=== PATIENT | female | born 1950 | race Caucasian/White ===

== ENCOUNTER → 2016-05-05 | Outpatient (CLI) | payer OTHER ==
--- NOTE | 2016-05-05 14:14 | BD ---
EXAMINATION TYPE: MG DEXA axial skeleton. DATE OF EXAM: 05/05/2016 12:22 PM CLINICAL HISTORY: Z79.52, currently chronic use of steroids, postmenopausal female Height: 66.5 Weight: 206 FRAX RISK QUESTIONS: Alcohol (3 or more units per day): no Family History (Parent hip fracture): no Glucocorticoids (More than 3mos): yes (Ex: prednisone, prednisolone, methylprednisolone, dexamethasone, and hydrocortisone). History of Fracture in Adulthood: no Secondary Osteoporosis: 1. Type 1 Diabetes: no 2. Hyperthyroidism: no 3. Menopause before 45: no 4. Malnutrition: no 5. Chronic liver disease: no Rheumatoid Arthritis: no Current Tobacco Use: no RISK FACTORS HISTORY OF: History of Fracture: no Family History of Osteoporosis: no Smoke tobacco: not now Drink Alcohol: occasionally, socially Active: yes Diet low in dairy products/other sources of calcium: no Postmenopausal woman: yes Take estrogen and/or progesterone medications: yes How long: estrogen for a couple years' years ago; now about 1 year using Estradiol Lost more than 2 inches in height since high school: no Frequent falls: no Poor Health: no Hyperparathyroidism: no Adrenal Insufficiency: minimal MEDICATIONS: Prednisone or other steroids: yes How Long: at least 10 years Thyroid Medications: yes Which medication: Synthroid How Long: about 40 years Osteoporosis Medications: no Additional Medications: Albuterol rescue inhaler, [place], Singulair Additional History: hypothyroid EXAM MEASUREMENTS: Bone mineral densitometry was performed using the [employer] System. Bone mineral density as measured about the Lumbar spine is: ----- L1-L4(G/cm2): 1.244 T Score Values are as follows: ----- L2: -0.9 ----- L3: 0.8 ----- L4: 1.8 ----- L1-L4: 0.5 Bone mineral density not previously done at this facility; done elsewhere Bone mineral density about the R hip (g/cm2): 1.050 Bone mineral density about the L hip (g/cm2): 1.144 T Score values are as follows: -----R Neck: 0.1 -----L Neck: 0.8 -----R Intertrochanter: 0.1 -----L Intertrochanter: 1.1 Bone mineral density not previously done at this facility; done elsewhere IMPRESSION: Normal (Values between +1 and -1 indicate normal bone mass) Lumbar Spine & Bilateral Hips NOTE: T-SCORE=SD OF THE YOUNG ADULT MEAN.
== END ==
LOC: RADBDWWP 11:40
PROVIDERS: ATTEND Internal Medicine Endocrinology, Diabetes & Metabolism
DX: Z79.52 Long term (current) use of systemic steroids (principal)
CPT/HCPCS: 77080

== ENCOUNTER → 2016-05-05 | Outpatient (CLI) | payer OTHER | END | disposition home or self-care (01) | LOC: LABWHC1 11:21 | PROVIDERS: ATTEND Internal Medicine Endocrinology, Diabetes & Metabolism | DX: E03.8 Other specified hypothyroidism (principal) | CPT/HCPCS: 36415; 84443 ==

== ENCOUNTER → 2016-05-06 | Outpatient (CLI) | payer OTHER ==
[2016-05-06 17:27] LABS: Blood Urea Nitrogen 16 mg/dL (7-17); Non-African American GFR(MDRD) >60 (>60 ml/min/1.73 sqM)
== END | disposition home or self-care (01) ==
LOC: LABWHC1 16:37
PROVIDERS: ATTEND Physical Medicine & Rehabilitation
DX: M47.892 Other spondylosis, cervical region (principal); M47.896 Other spondylosis, lumbar region; M47.894 Other spondylosis, thoracic region; M54.2 Cervicalgia; M54.5 Low back pain; M54.6 Pain in thoracic spine
CPT/HCPCS: 36415; 82565; 84520

== ENCOUNTER → 2017-02-28 | Outpatient (CLI) | payer OTHER ==
--- NOTE | 2017-03-02 09:40 | MM ---
Reason for exam: screening (asymptomatic). Last mammogram was performed 1 year and 2 months ago. History: Patient is postmenopausal. Taking estrogen beginning at age 66. Physical Findings: A clinical breast exam by your physician is recommended on an annual basis and results should be correlated with mammographic findings. MG 3D Screening Mammo W/Cad Bilateral CC and MLO view(s) were taken. Prior study comparison: December 18, 2015, mammogram, performed at [facility]. December 05, 2014, mammogram, performed at [facility]. There are scattered fibroglandular densities. A couple asymmetric densities in the right breast appear more defined and incompletely disperse on 3D images. ASSESSMENT: Incomplete: need additional imaging evaluation, BI-RAD 0 RECOMMENDATION: Special view mammogram of the right breast. If lesion persists on supplemental views, image directed ultrasound is recommended. [facility] will attempt to contact patient to return for supplemental views and ultrasound if indicated.
== END | disposition home or self-care (01) ==
LOC: RADMAMWWP 13:41
PROVIDERS: ATTEND Family Medicine
DX: Z12.31 Encounter for screening mammogram for malignant neoplasm of breast (principal)
CPT/HCPCS: 77063; G0202

== ENCOUNTER → 2017-03-04 | Outpatient (CLI) | payer OTHER ==
--- NOTE | 2017-03-04 11:28 | MM ---
Reason for exam: additional evaluation requested from abnormal screening. Last mammogram was performed less than 1 month ago. History: Patient is postmenopausal. Taking estrogen beginning at age 66. Physical Findings: Nurse did not find any significant physical abnormalities on exam. MG 3D Work Up W/Cad RT LM, spot compression CC, and spot compression MLO view(s) were taken of the right breast. Prior study comparison: February 28, 2017, bilateral MG 3d screening mammo w/cad. December 18, 2015, mammogram, performed at [facility]. The breast tissue is heterogeneously dense. This may lower the sensitivity of mammography. There is no discrete abnormality on compression views. These results were verbally communicated with the patient and result sheet given to the patient on 03/04/17. ASSESSMENT: Probably benign, BI-RAD 3 RECOMMENDATION: Follow-up diagnostic mammogram of the right breast in 6 months.
== END | disposition home or self-care (01) ==
LOC: RADMAMWWP 10:23
PROVIDERS: ATTEND Family Medicine
DX: R92.8 Other abnormal and inconclusive findings on diagnostic imaging of breast (principal)
CPT/HCPCS: G0206; G0279

== ENCOUNTER → 2017-09-05 | Outpatient (CLI) | payer MEDICARE, OTHER ==
--- NOTE | 2017-09-06 08:38 | MM ---
Reason for exam: follow-up at short interval from prior study. Last mammogram was performed 6 months ago. History: Patient is postmenopausal. Taking estrogen beginning at age 66. Physical Findings: Nurse did not find any significant physical abnormalities on exam. MG 3D Diag Mammo W/Cad RT CC and MLO view(s) were taken of the right breast. Prior study comparison: March 04, 2017, right breast MG 3d work up w/cad RT. February 28, 2017, bilateral MG 3d screening mammo w/cad. There are scattered fibroglandular densities. No significant new findings when compared with previous films. These results were verbally communicated with the patient and result sheet given to the patient on 09/05/17. ASSESSMENT: Benign, BI-RAD 2 RECOMMENDATION: Return to routine screening mammogram schedule for both breasts. Back on schedule.
== END | disposition home or self-care (01) ==
LOC: RADMAMWWP 12:58
PROVIDERS: ATTEND Family Medicine
DX: R92.8 Other abnormal and inconclusive findings on diagnostic imaging of breast (principal)
CPT/HCPCS: 77061; 77065

== ENCOUNTER → 2018-01-09 | Outpatient (CLI) | payer OTHER, MEDICARE ==
--- NOTE | 2018-01-09 11:54 | US ---
EXAMINATION TYPE: US thyroid st tissue head/neck DATE OF EXAM: 01/09/2018 COMPARISON: 03/16/2016 CLINICAL HISTORY: 67-year-old female E04.1 Thyroid Nodule. TECHNIQUE: Multiple sonographic images of the thyroid gland are obtained. FINDINGS: GLAND SIZE: Right Lobe: 3.0 x 1.2 x 0.6 cm Overall Parenchyma: heterogenous Left Lobe: 2.5 x 0.6 x 0.7 cm Overall Parenchyma: heterogeneous Isthmus Thickness: 0.2 cm NODULES RIGHT: # of nodules measured on right: 0 LEFT: # of nodules measured on left: 0 ISTHMUS: # of nodules measured in the isthmus: 0 Previous nodule not appreciated on today's ultrasound. Bilateral neck scanned, no evidence of lymphadenopathy. IMPRESSION: Small heterogeneous thyroid gland. Query a history of chronic hypothyroidism in this patient. No disc rete nodule. Specifically, the previous nodule seen in the left lobe is no longer identified.
== END | disposition home or self-care (01) ==
LOC: RADUSWWP 08:10
PROVIDERS: ATTEND Internal Medicine Endocrinology, Diabetes & Metabolism
DX: E07.89 Other specified disorders of thyroid (principal); E03.8 Other specified hypothyroidism
CPT/HCPCS: 36415; 76536; 84443

== ENCOUNTER → 2018-03-15 | Outpatient (CLI) | payer OTHER, MEDICARE ==
--- NOTE | 2018-03-20 11:08 | MM ---
Reason for exam: screening (asymptomatic). Last mammogram was performed 6 months ago. History: Patient is postmenopausal. Taking estrogen beginning at age 66. Physical Findings: A clinical breast exam by your physician is recommended on an annual basis and results should be correlated with mammographic findings. MG Screening Mammo w CAD Bilateral CC and MLO view(s) were taken. Prior study comparison: September 05, 2017, right breast MG 3d diag mammo w/cad RT. March 04, 2017, right breast MG 3d work up w/cad RT. The breast tissue is heterogeneously dense. This may lower the sensitivity of mammography. No suspicious abnormality. No significant changes when compared with prior studies. ASSESSMENT: Negative, BI-RAD 1 RECOMMENDATION: Routine screening mammogram of both breasts in 1 year.
== END | disposition home or self-care (01) ==
LOC: RADMAMWWP 13:36
PROVIDERS: ATTEND Family Medicine
DX: Z12.31 Encounter for screening mammogram for malignant neoplasm of breast (principal)
CPT/HCPCS: 77067

== ENCOUNTER → 2018-05-03 | Outpatient (CLI) | payer MEDICARE, OTHER | END | disposition home or self-care (01) | LOC: LABWHC1 11:07 | PROVIDERS: ATTEND Nurse Practitioner Family | DX: E03.9 Hypothyroidism, unspecified (principal) | CPT/HCPCS: 36415; 84443 ==

== ENCOUNTER → 2018-05-03 | Outpatient (CLI) | payer MEDICARE, OTHER ==
[2018-05-03 11:28] LABS: HGB 14.3 gm/dL (11.4-16.0); MCH 30.8 pg (25.0-35.0); MCHC 33.3 g/dL (31.0-37.0); MCV 92.5 fL (80.0-100.0); Mean Platelet Volume 7.5; Platelet Count 280 k/uL (150-450); RBC 4.65 m/uL (3.80-5.40); RDW 13.4 % (11.5-15.5); WBC 8.2 k/uL (3.8-10.6)
[2018-05-03 11:41] LABS: Anion Gap 8 mmol/L; Blood Urea Nitrogen 20 mg/dL (7-17); Carbon Dioxide 30 mmol/L (22-30); Chloride 101 mmol/L (98-107); Potassium 4.6 mmol/L (3.5-5.1); Sodium 139 mmol/L (137-145)
== END | disposition home or self-care (01) ==
LOC: LABPAT 11:04
PROVIDERS: ATTEND Internal Medicine Interventional Cardiology
DX: Z01.812 Encounter for preprocedural laboratory examination (principal); I10 Essential (primary) hypertension; E78.1 Pure hyperglyceridemia; R07.9 Chest pain, unspecified
CPT/HCPCS: 80051; 82565; 84520; 85027

== ENCOUNTER 2018-05-25 08:03 | Day surgery (SDC) | payer MEDICARE, OTHER ==
[2018-05-23 14:38] VITALS: BMI 35.5
[~2018-05-25 08:03] MED LIST: ALPRAZolam 0.25 MG TAB PO PRN; ALPRAZolam 0.5 MG TAB PO PRN; ATORVASTATIN 80 MG TAB PO STA; NITROGLYCERIN SL TABS 0.4 MG TAB SUBLINGUAL PRN; SODIUM CHLORIDE 0.9% 1,000 ML in EMPTY BAG 1 BAG IV ONE
[2018-05-25] MEDS ORDERED: SODIUM CITRATE 500 ML IV SCH (08:30)
[2018-05-25] MEDS ORDERED: SODIUM CHLORIDE 0.9% 1,000 ML IV ONE (08:35)
[2018-05-25 08:39] VITALS: RESP 16; TEMP 98.2
[2018-05-25] MEDS ORDERED: SODIUM CITRATE 250 ML IV SCH (08:45)
[2018-05-25] MEDS ORDERED: MIDAZOLAM 2 MG/2 ML VIAL IVP ONE (09:00)
[2018-05-25] MEDS ORDERED: LIDOCAINE 1% INJ 10MG/ML (20 ML MDV) SQ ONE (09:02)
[2018-05-25] MEDS: VERAPAMIL SYRINGE (5 MG/10 ML) INTRAARTER ONE ×2 (09:03→09:13)
[2018-05-25] MEDS ORDERED: IOPAMIDOL-370 125ML BTL INJ ONE (09:13)
[2018-05-25] MEDS ORDERED: RX INFO: IV CONTRAST WAS GIVEN 1 EACH MISC MISCELLANE PRN (09:19)
[2018-05-25] MEDS ORDERED: SODIUM CHLORIDE 0.9% 1,000 ML IV SCH (09:30)
--- NOTE | 2018-05-25 09:44 | CC ---
CARDIAC CATHETERIZATION REPORT DATE OF SERVICE: May 25, 2018 PERFORMING PHYSICIAN: Mohamud Montgomery MD, engineering librarian. PROCEDURE PERFORMED: 1. Selective right and left coronary angiogram. 2. Left heart catheterization. INDICATION: This is a pleasant 67-year-old female patient with hypertension and dyslipidemia who continues to have chest discomfort in spite of normal myocardial perfusion imaging stress test. The exercise part of the test was abnormal showing ischemia, but the nuclear part came in to be unremarkable. She does have very significant family history of coronary artery disease. APPROACH: Right radial artery. COMPLICATION: None. LEVEL OF SEDATION: Moderate with sedation length of 14 minutes. PROCEDURE DESCRIPTION: After obtaining an informed consent, the patient was brought to cardiac boat laborer. The right radial artery was cannulated using micropuncture technique and a micropuncture wire passed easily then I placed a 6-Georgian sheath in the right radial artery. After that, I did give the patient 2 mg of verapamil IA and 10,000 units of heparin IV. Selective right and left coronary angiogram was performed using JR4 and JL3.5 catheters. The left heart catheterization was performed using 5-Georgian pigtail catheter. The procedure was completed without any complication. SELECTIVE CORONARY ANGIOGRAM: 1. The right coronary artery is a moderate caliber vessel and it is a dominant vessel. It is angiographically normal. 2. The left main is angiographically normal. It bifurcates into left circumflex and left anterior descending artery. 3. Left circumflex is a large caliber vessel. It is a nondominant vessel and appeared to be angiographically normal. The left circumflex in the midportion gives rise into a large OM branch which appeared to be angiographically normal. Distally gives PDA branch which appears to be angiographically normal as well. 4. The LAD: The proximal LAD is normal. The mid LAD is normal and gives rise into a large diagonal branch which seems to be angiographically normal and the LAD distally appeared to be angiographically normal. HEMODYNAMICS: The left ventricular end-diastolic pressure was 12 mmHg and no significant gradient was identified across the aortic valve. CONCLUSION: 1. Normal coronary angiogram. 2. Normal left ventricular end-diastolic pressure. POSTPROCEDURE MANAGEMENT: Medical treatment. MMODL / IJN: [id number] /
--- NOTE | 2018-05-25 09:47 | LTR ---
May 25, 2018 Re: Annalisa Nina Dear Dr. Abrams: Ms. Annalisa Wood underwent a heart catheterization and that showed normal coronaries. I want to thank you for allowing me to participate in her care and please do not hesitate to call if you have any question or concern. Sincerely, MD ESTELA James / MANJULA: [id number] /
[2018-05-25 14:16] VITALS: BP 133/71; PULSE 62
== END 2018-05-25 14:17 | disposition home or self-care (01) ==
LOC: CATHCVL 08:03
PROVIDERS: ATTEND Internal Medicine Interventional Cardiology
DX: R07.89 Other chest pain (principal); E78.5 Hyperlipidemia, unspecified; I10 Essential (primary) hypertension; E78.1 Pure hyperglyceridemia; Z82.49 Family history of ischemic heart disease and other diseases of the circulatory system; Z79.899 Other long term (current) drug therapy; Z88.6 Allergy status to analgesic agent; Z88.2 Allergy status to sulfonamides; Z88.8 Allergy status to other drugs, medicaments and biological substances; Z91.040 Latex allergy status; Z79.890 Hormone replacement therapy
CPT/HCPCS: 93458; C1894; J2250; J2001; Q9967

== ENCOUNTER → 2018-06-05 | Outpatient (CLI) | payer MEDICARE, OTHER | END | disposition home or self-care (01) | LOC: LABWHC1 10:40 | PROVIDERS: ATTEND Internal Medicine Endocrinology, Diabetes & Metabolism | DX: E04.1 Nontoxic single thyroid nodule (principal) | CPT/HCPCS: 36415; 84439; 84443 ==

== ENCOUNTER → 2019-02-14 | Outpatient (CLI) | payer MEDICARE ==
--- NOTE | 2019-02-14 14:05 | MR ---
EXAMINATION TYPE: MR cervical spine wo/w con DATE OF EXAM: 02/14/2019 COMPARISON: None HISTORY: Cervicalgia, pain and numbness TECHNIQUE: Multiplanar, multisequence images of the cervical spine were acquired utilizing 10 mL intravenous Johnny avist gadolinium contrast. Diffusion weighted imaging was performed. C2-C3: No evidence for degenerative disc disease. No disc bulge/herniation or protrusion. No Canal stenosis. Foramina are patent bilaterally. C3-C4: Posterior extension of endplate disc complex causes mild anterior mass effect on the thecal sa c. On mild central stenosis. Uncovertebral joint hypertrophy and facet arthropathy results in bilater al foraminal encroachment left greater than right. C4-C5: Uncovertebral joint hypertrophy and facet arthropathy results in bilateral significant foramin al encroachment, posterior extension endplate disc complex causes anterior mass effect on the thecal sac and mild to moderate central stenosis. C5-C6: Postop changes are noted. No significant spinal stenosis. There is some foraminal encroachment left greater than right. C6-C7: Postop changes are noted. There is some foraminal encroachment bilaterally. No significant ed tral stenosis. No disc herniation. C7-T1: No evidence for degenerative disc disease. No disc bulge/herniation or protrusion. No Canal stenosis. Foramina are patent bilaterally. Cervical segments are intact. There is normal alignment. Cervical spinal cord is remarkable for angel e mild foci of increased T2 signal within the cord at C5 and C6 likely due to some local myelomalacia . No abnormal enhancement. Some mild enhancement of the posterior aspect of the disc at L5 likely due to some local granulation tissue. Craniovertebral junction relationships are within normal limits. Cervical vertebral bodies show preserved height. Anterior cervical fusion and discectomy change at C5 -C7 is present with artifact due to patient's hardware. IMPRESSION: Degenerative disc disease, foraminal encroachment, postop change in cervical cord signal changes as d escribed. Spinal stenosis greatest at C4-5.
== END | disposition home or self-care (01) ==
LOC: RADMRIMAIN 08:43
PROVIDERS: ATTEND Physical Medicine & Rehabilitation
DX: M48.02 Spinal stenosis, cervical region (principal); M50.10 Cervical disc disorder with radiculopathy, unspecified cervical region; Z98.1 Arthrodesis status; M17.12 Unilateral primary osteoarthritis, left knee
CPT/HCPCS: 72156; A9585

== ENCOUNTER → 2019-03-16 | Outpatient (CLI) | payer MEDICARE ==
--- NOTE | 2019-03-20 08:34 | MM ---
Reason for exam: screening (asymptomatic). Last mammogram was performed 1 year ago. History: Patient is postmenopausal. Taking estrogen beginning at age 66. Physical Findings: A clinical breast exam by your physician is recommended on an annual basis and results should be correlated with mammographic findings. MG 3D Screening Mammo W/Cad Bilateral CC and MLO view(s) were taken. Prior study comparison: March 15, 2018, bilateral MG screening mammo w CAD. September 05, 2017, right breast MG 3d diag mammo w/cad RT. There are scattered fibroglandular densities. No significant changes when compared with prior studies. ASSESSMENT: Benign, BI-RAD 2 RECOMMENDATION: Routine screening mammogram of both breasts in 1 year.
== END | disposition home or self-care (01) ==
LOC: RADMAMWWP 11:20
PROVIDERS: ATTEND Family Medicine
DX: Z12.31 Encounter for screening mammogram for malignant neoplasm of breast (principal)
CPT/HCPCS: 77063; 77067

== ENCOUNTER → 2019-03-26 | Outpatient (CLI) | payer MEDICARE ==
[2019-03-26 16:53] LABS: T4, Free (Free Thyroxine) 1.4 ng/dL (0.80-1.80)
== END ==
LOC: LABWHC1 10:20
PROVIDERS: ATTEND Internal Medicine Endocrinology, Diabetes & Metabolism
DX: E04.1 Nontoxic single thyroid nodule (principal); E03.8 Other specified hypothyroidism
CPT/HCPCS: 36415; 84439; 84443

== ENCOUNTER → 2019-10-29 | Outpatient (CLI) | payer MEDICARE, OTHER ==
--- NOTE | 2019-10-29 13:31 | US ---
EXAMINATION TYPE: US thyroid st tissue head/neck DATE OF EXAM: 10/29/2019 COMPARISON: NONE CLINICAL HISTORY: E03.8 Other specified hypothyroidism. GLAND SIZE: Right Lobe: cm Overall Parenchyma: Left Lobe: cm Overall Parenchyma: Isthmus Thickness: cm NODULES RIGHT: # of nodules measured on right: 1. X x cm nodule at the pole with margins; . This nodule is and shows . Prior size: x x cm 2. X x cm nodule at the pole with margins; . This nodule is and shows . Prior size: x x cm 3. X x cm nodule at the pole with margins; . This nodule is and shows . Prior size: x x cm 4. X x cm nodule at the pole with margins; . This nodule is and shows . Prior size: x x cm LEFT: # of nodules measured on left: 1. X x cm nodule at the pole with margins; . This nodule is and shows . Prior size: x x cm 2. X x cm nodule at the pole with margins; . This nodule is and shows . Prior size: x x cm 3. X x cm nodule at the pole with margins; . This nodule is and shows . Prior size: x x cm 4. X x cm nodule at the pole with margins; . This nodule is and shows . Prior size: x x cm ISTHMUS: # of nodules measured in the isthmus: 1. X x cm nodule at the pole with margins; . This nodule is and shows . Prior size: x x cm Bilateral neck scanned, no evidence of lymphadenopathy. IMPRESSION: EXAMINATION TYPE: US thyroid st tissue head/neck DATE OF EXAM: 10/29/2019 COMPARISON: NONE CLINICAL HISTORY: E03.8 Other specified hypothyroidism. MEASUREMENTS: GLAND SIZE: Right Lobe: 3.8 x 0.9 x 0.4cm Left Lobe: 3.7 x 0.6 x 0.9cm Isthmus Thickness: 0.1cm NODULES RIGHT: # of nodules measured on right: 0 LEFT: # of nodules measured on left: 0 ISTHMUS: # of nodules measured within isthmus: 0 Bilateral neck scanned, no evidence of lymphadenopathy. IMPRESSION: No distinct abnormality appreciated.
[2019-10-29 14:54] LABS: T4, Free (Free Thyroxine) 1.2 ng/dL (0.78-2.19)
== END | disposition home or self-care (01) ==
LOC: RADUSMAIN 12:59
PROVIDERS: ATTEND Internal Medicine Endocrinology, Diabetes & Metabolism
DX: E03.8 Other specified hypothyroidism (principal); E04.1 Nontoxic single thyroid nodule
CPT/HCPCS: 36415; 76536; 84439; 84443

== ENCOUNTER → 2019-12-06 | Outpatient (CLI) | payer MEDICARE, OTHER ==
--- NOTE | 2019-12-06 15:07 | CONS ---
CONSULTATION DATE OF SERVICE: 12/06/2019 A 69-year-old lady who has been evaluated in the Sleep Center for obstructive sleep apnea-hypopnea syndrome. HISTORY OF PRESENT ILLNESS SLEEP WAKE EVALUATION: The patient has some obstructive sleep apnea diagnosed several years ago on treatment with CPAP. Last time was seen no neuritis last time was seen so after awakenings in the morning she has episodes of sleep paralysis. Also in the morning she has to. She wakes up tired, has problems with memory, concentration, depression, anxiety, claustrophobia. His sleep schedule from 10 p.m. to 6:30 a.m. No problems with falling asleep. No TV in bedroom. She may take additional nap around 2 pm. She wakes up from sleep 2 times with nocturia. No history of hypnagogic hallucinations. [place] Sleepiness Scale is 6. I checked patient's CPAP unit and CPAP pressure of 9 cm of water. PAST MEDICAL HISTORY: Positive for hypertension, hyperlipidemia, asthma, hypothyroidism. PAST SURGICAL HISTORY: Partial hysterectomy, total knee replacement, cervical fusion. MEDICATIONS: Synthroid, doxycycline, duloxetine, Hyzaar, Singulair, lovastatin, Serevent, albuterol. SOCIAL HISTORY: Quit smoking about 35 years ago. Alcohol consumption occasional. FAMILY HISTORY: Hypertension, heart problems, asthma, snoring, diabetes, thyroid problems, mental illness. REVIEW OF SYSTEMS: Awakenings from sleep with nocturia and episodes of sleep or paralysis. PHYSICAL EXAM: lady without distress, BP 118/67, HR 76, RR 16, height 5, 6-3/4, weight 222.2, temperature 98.4, oxygen saturation at room air 98%. OROPHARYNX: Extremely low position of soft palate. Mallampati 4. ABDOMEN: Slightly obese. NECK: Supple, no JVD. Thyroid is not palpable. LUNGS: Clear to percussion and to auscultation. Good air exchange. No wheezing or rhonchi. HEART: S1, S2 regular. No murmurs, gallops, or rubs. EXTREMITIES: No clubbing or cyanosis. PRECISION FARMING SPECIALIST: Awake, alert, and oriented X3. Cranial nerves 2 to 7 intact. There is no fasciculation or atrophy. noted. No focal deficits observed. IMPRESSION: 1. Repeat CPAP titration for evaluation of effective CPAP pressure at the present time. Possibly, patient still have some abnormalities of respiration in REM sleep and because she wakes up with episodes of sleep paralysis. 2. Losing weight. 3. Sleep hygiene with regular time in bed for 7-1/2 to 8 hours. 4. No driving if feeling sleepiness. 5. [employer] required the patient to repeat the sleep study. Thank you very much for allowing me to participate in the management of your patient. Sincerely, Elijah Dixon MD, PhD, FAASM Diplomat of [place] [employer] [place] Kier Hand of [facility] [place] MMODL / MATTHEWN: [id number] /
== END | disposition home or self-care (01) ==
LOC: SLEEP 13:39
PROVIDERS: ATTEND Internal Medicine
DX: G47.33 Obstructive sleep apnea (adult) (pediatric) (principal); Z99.89 Dependence on other enabling machines and devices; R63.4 Abnormal weight loss
CPT/HCPCS: 99211

== ENCOUNTER → 2020-01-02 | Outpatient (CLI) | payer MEDICARE, OTHER | END | disposition home or self-care (01) | LOC: LABWHC1 10:21 | PROVIDERS: ATTEND Internal Medicine Endocrinology, Diabetes & Metabolism | DX: E03.8 Other specified hypothyroidism (principal) | CPT/HCPCS: 36415; 84443 ==

== ENCOUNTER → 2020-02-14 | Outpatient (CLI) | payer MEDICARE, OTHER ==
--- NOTE | 2020-02-14 17:47 | SFUN ---
SLEEP CENTER FOLLOW UP NOTE DATE OF SERVICE: 02/14/2020 This 69-year-old lady has been followed in the sleep center for treatment of obstructive sleep apnea-hypopnea syndrome. Recently we did a home sleep apnea test which showed an apnea-hypopnea index of 28 with oxygen desaturation to 81%. Then the patient had CPAP titration. I discussed results of her sleep study with the patient in detail. After that she received a new CPAP unit. The patient is able to use CPAP equipment every night for the whole night. She likes her machine, but it is noisy during sleep. [place] Sleepiness Scale today is 6, which is normal. I checked her CPAP unit. CPAP pressure is 9 cm of water. Usage is 29/30 nights for more than 4 hours. Average usage is 7.4 hours per night. Leak is 1 L/minute. Apnea- hypopnea index is 4.8. Her medications are Synthroid 112 mcg once a day in the morning, duloxetine 60 mg once a day, lovastatin 20 mg once a day, Serevent inhaler b.i.d., prednisone 20 mg for 5 days for bursitis, doxycycline 50 mg b.i.d. PHYSICAL EXAMINATION: GENERAL: A pleasant patient in no distress. VITAL SIGNS: BP 142/62, HR 70, RR 15, height 5 feet 6-1/2 inches, weight 222, BMI 34.8, temperature 98.8, oxygen saturation at room air 97%. HEENT: PERRLA, EOMI. Evaluation of oropharynx showed tongue protrudes midline. Low position of soft palate. NECK: Supple. No JVD. Thyroid is not palpable. LUNGS: Clear to percussion and to auscultation. Good air exchange. No wheezing or rhonchi. HEART: S1, S2 regular. No murmurs, gallops or rubs. ABDOMEN: Soft, nontender. No organomegaly. Bowel sounds are heard in all four quadrants. EXTREMITIES: No clubbing or cyanosis. BUSINESS SYSTEMS ADVISOR: Awake, alert, and oriented X3. Cranial nerves 2 to 7 intact. There is no fasciculation or atrophy. noted. No focal deficits observed. IMPRESSION: 1. Obstructive sleep apnea-hypopnea syndrome. The patient demonstrated great compliance with treatment, benefitting from treatment. The machine is noisy, according to patient. 2. Hypertension. 3. Hyperlipidemia. 4. Asthma. 5. Hypothyroidism. PLAN: 1. Patient will continue to use PAP equipment every night for the whole night. 2. Sleep hygiene with regular time in bed for at least 7-1/2 to 8 hours. 3. Precautions related to driving. No driving if feeling sleepiness. 4. I will maintain all necessary prescription for PAP supplies including mask, tube, filters. 5. Watching weight. 6. No driving if feeling sleepiness. 7. Follow-up visit in 6 months or earlier if patient has any problems. 8. Prescription to check and replace machine if necessary for the noise. Thank you very much for allowing me to participate in the management of your patient. Sincerely, Elijah Dixon MD, PhD, FAASM Diplomat of [employer] Global Safety Officer of [facility] [place] MMODL / MATTHEWN: [id number] /
== END | disposition home or self-care (01) ==
LOC: SLEEP 13:22
PROVIDERS: ATTEND Internal Medicine
DX: G47.33 Obstructive sleep apnea (adult) (pediatric) (principal); I10 Essential (primary) hypertension; E78.5 Hyperlipidemia, unspecified; E03.9 Hypothyroidism, unspecified; J45.909 Unspecified asthma, uncomplicated; Z99.89 Dependence on other enabling machines and devices

== ENCOUNTER → 2020-05-19 | Outpatient (CLI) | payer MEDICARE, OTHER ==
[2020-05-19 11:15] VITALS: BP 146/87; PULSE 83; RESP 16; TEMP 98.7
--- NOTE | 2020-05-19 11:52 | P.CONS ---
History of Present Illness - Reason for Consult Consult date: 05/19/20 - Chief Complaint Neck pain - History of Present Illness This is a 69-year-old lady with history of chronic neck pain with radiation to the left shoulder and occasionally to the left wrist without paresthesia. This pain is aggravated by driving and by washing dishes and stretching the arms out. The patient used to be cervical epidural steroid injection from Dr. Salinas which gave her significant relief of her pain with the last injection done in 2018. She denies any bowel or bladder dysfunction or any weakness in the upper or lower extremities. This pain occasionally wakes her up at night. She denies any weight loss. The patient had an MRI on the cervical spine in 2019 which showed postoperative changes the C5-C6 level and C6-C7 level. It also showed uncovertebral joint hypertrophy and facet arthropathy at the C4 5 level with bilateral significant foraminal encroaching with similar findings at the C3-C4 level. Past Medical History Past Medical History: Asthma, Hyperlipidemia, Hypertension, Thyroid Disorder Additional Past Medical History / Comment(s): "LEAKY HEART VALVE" History of Any Multi-Drug Resistant Organisms: None Reported Past Surgical History: Cholecystectomy, Hysterectomy, Joint Replacement Additional Past Surgical History / Comment(s): RT TKA WITH 4 REVISIONS, CERVICAL FUSION, COLONOSCOPY Past Anesthesia/Blood Transfusion Reactions: No Reported Reaction Smoking Status: Former smoker - Past Family History Mother Family Medical History: No Reported History Medications and Allergies Home Medications Medication Instructions Recorded Confirmed Type Losartan/Hydrochlorothiazide 1 tab PO HS 03/26/16 05/19/20 History [Hyzaar 100-25 Tablet] Albuterol Sulfate [Proair 1 puff PO Q6HR PRN 05/14/20 05/19/20 History Respiclick] Cholecalciferol [Vitamin D3 (25 50 mcg PO DAILY 05/14/20 05/19/20 History Mcg = 1000 Iu)] DULoxetine HCL [Cymbalta] 60 mg PO HS 05/14/20 05/19/20 History Levothyroxine Sodium 112 mcg PO DAILY 05/14/20 05/19/20 History Lovastatin [Mevacor] 20 mg PO HS 05/14/20 05/19/20 History Meloxicam [Mobic] 15 mg PO HS 05/14/20 05/19/20 History Salmeterol Xinafoate [Serevent 50 mcg IH BID 05/14/20 05/19/20 History Diskus] Allergies Allergy/AdvReac Type Severity Reaction Status Date / Time aspirin Allergy Rash/Hives Verified 05/14/20 13:13 enoxaparin [From Lovenox] Allergy Rash/Hives Verified 05/14/20 13:13 heparin Allergy Rash/Hives Verified 05/14/20 13:13 latex Allergy Rash/Hives Verified 05/14/20 13:13 Sulfa (Sulfonamide Allergy Rash/Hives Verified 05/14/20 13:13 Antibiotics) warfarin [From Coumadin] Allergy Rash/Hives Verified 05/14/20 13:13 Physical Exam Vitals: Vital Signs Temp Pulse Resp BP Pulse Ox 05/19/20 11:09 98.7 F 83 16 146/87 97 - Constitutional General appearance: obese - EENT Eyes: PERRLA - Neurologic Neuro exam of the upper extremities was normal for muscle strength and deep tendon reflexes bilaterally. Slightly decreased range of motion of the cervical spine to the left side rotation. Normal range of motion of the left shoulder joint No tenderness around the left shoulder joint No tenderness in the cervical paravertebral musculature or the trapezius muscles Neurologic: CNII-XII intact - Psychiatric Psychiatric: A&O x's 3, appropriate affect, intact judgment & insight Assessment and Plan Plan: This is a 69-year-old lady with neck pain with radiation to the left shoulder and occasionally to the left wrist with no paresthesia in the left arm. The patient had cervical fusion previously. The patient had cervical epidural steroid injection previously with Dr. Salinas which gave her significant relief of her pain. We will plan on doing cervical epidural steroid injection at the C7-T1 level in the left paramedian approach under fluoroscopic guidance. I asked the patient to stop her Mobic for 24 hours before the procedure. The procedure was explained to the patient and her questions were answered. I thank you for the referral
== END | disposition home or self-care (01) ==
LOC: PNWHC3 10:59
PROVIDERS: ATTEND Anesthesiology
DX: M54.2 Cervicalgia (principal); J45.909 Unspecified asthma, uncomplicated; E78.5 Hyperlipidemia, unspecified; I10 Essential (primary) hypertension; Z98.1 Arthrodesis status; Z88.5 Allergy status to narcotic agent; Z88.2 Allergy status to sulfonamides; Z88.8 Allergy status to other drugs, medicaments and biological substances; Z91.040 Latex allergy status; Z79.891 Long term (current) use of opiate analgesic; Z79.899 Other long term (current) drug therapy; Z79.1 Long term (current) use of non-steroidal anti-inflammatories (NSAID); Z79.51 Long term (current) use of inhaled steroids; Z87.891 Personal history of nicotine dependence
CPT/HCPCS: 99211

== ENCOUNTER 2020-06-10 06:44 | Day surgery (SDC) | payer MEDICARE, OTHER ==
[2020-06-06 15:39] VITALS: BMI 34.4
[2020-06-10 07:24] VITALS: TEMP 98.3
[2020-06-10] MEDS ORDERED: LACTATED RINGERS 1,000 ML IV ONE (07:32)
[2020-06-10] MEDS ORDERED: DEXAMETHASONE SOD PHOSPHATE 10 MG/ML 1 ML VIAL ONE (07:39)
[2020-06-10] MEDS ORDERED: MIDAZOLAM 2 MG/2 ML VIAL ONE (07:39)
[2020-06-10] MEDS ORDERED: IOPAMIDOL M200 10 ML VIAL ONE (07:39)
[2020-06-10] MEDS ORDERED: LIDOCAINE 1% INJ 10MG/ML (20 ML MDV) ONE (07:39)
[2020-06-10] MEDS ORDERED: fentaNYL (PF) 50 MCG/ML 2 ML AMP ONE (07:39)
--- NOTE | 2020-06-10 07:56 | P.PCN ---
Date of Procedure: 06/10/20 Description of Procedure: Diagnosis: Cervical radiculopathy Cervical degenerative disc disease POSTOPERATIVE DIAGNOSIS: Diagnoses: Cervical radiculopathy Cervical degenerative disc disease PROCEDURE Cervical Epidural steroid injection under fluoroscopic guidance at the C7-T1 interspace using left paramedian approach Cervical epidurogram ANESTHESIA: Local with 1% lidocaine 3 ml and IV sedation with Versed and fentanyl, sedation time 11 min Fluoroscopy was used for the procedure and images were saved in the radiology portion of the chart. EBL: Minimal PROCEDURE INDICATION: The patient presents with cervical radicular symptoms unresponsive to conservative treatment. This is the first cervical epidural steroid injection. PROCEDURE DESCRIPTION / TECHNIQUE: The patient was seen and identified in the preoperative area. Risks, benefits, complications including but not limited to infections ,bleeding ,allergic reaction to the medications ,nerve damage and incomplete pain relief, and alternatives were discussed with the patient. The patient agreed to proceed with the procedure and signed the consent. IV was started, and vital signs were stable. Patient was taken to the OR and time out was completed. The patient was placed in the prone position on procedure table and a pillow was placed under the chest area. The cervical area was prepped and draped in the usual sterile fashion. Conscious sedation was used during the procedure to decrease patients anxiety. Vital signs was monitored during the entire procedure. Using anterior-posterior fluoroscopy, the C7-T1 interlaminar space was identified and the skin over this site was marked and then infiltrated with 1% lidocaine subcutaneously. Subsequently, a 20-gauge Tuohy epidural needle was inserted and advanced toward the epidural space using the loss of resistance technique and guided by AP and 50 oblique fluoroscopy. The correct needle position in the epidural space was verified. After negative aspiration for blood and CSF and in the absence of paresthesias, Isovue 200 2 mL's was injected under live fluoroscopy with good epidural spread. After negative aspiration, a 4 ml mixture containing 10 mg of dexamethasone, 3 mL of preservative free normal saline was injected. Needle was withdrawn intact, skin was cleansed, and bandages were applied. COMPLICATIONS: None DISPOSITION / PLANS: The patient was placed in a supine position and transferred to the recovery area in a stable condition for observation. There was no evidence of lower extremity motor or sensory deficit after the procedure. Patient was discharged from the recovery room after meeting discharge criteria. Home discharge instructions were given to the patient by the staff. The patient will be scheduled a follow up n the clinic in 2-4 weeks.
[2020-06-10] MEDS ORDERED: IV FLUID CONTINUATION 700 ML IV ONE (08:06)
[2020-06-10 08:10] VITALS: RESP 20
--- NOTE | 2020-06-10 08:12 | FL ---
Fluoroscopy INDICATION: Pain FINDINGS: Fluoroscopy time: 16 seconds. Images obtained: 2. IMPRESSIONS: 1. Documentation of fluoroscopy.
[2020-06-10 08:22] VITALS: BP 100/64; PULSE 76
== END 2020-06-10 08:23 | disposition home or self-care (01) ==
LOC: ORPAIN 06:44
PROVIDERS: ATTEND Anesthesiology
DX: M50.10 Cervical disc disorder with radiculopathy, unspecified cervical region (principal); Z88.2 Allergy status to sulfonamides; Z88.6 Allergy status to analgesic agent; Z91.040 Latex allergy status
CPT/HCPCS: 62321; J2250; J1100; J3010; Q9966; 99152

== ENCOUNTER → 2020-06-30 | Outpatient (CLI) | payer MEDICARE, OTHER ==
--- NOTE | 2020-06-30 12:30 | P.PN ---
Subjective Progress Note Date: 06/30/20 This is a follow-up visit for this 69 years old female with a chronic history of severe neck pain with radiation to the left shoulder, with occasional radiation to the left upper extremity associated with some numbness and tingling sensation in the left upper extremity, she had that a cervical fusion surgery done previously, and she had MRI of the cervical spine, which showed that she had multilevel cervical degenerative disc disease and multilevel cervical facet arthropathy and bilateral foraminal stenosis Objective - Vital Signs Vital signs: Vital Signs Temp 98.3 F 06/30/20 12:05 Pulse 63 06/30/20 12:05 Resp 16 06/30/20 12:05 BP 122/79 06/30/20 12:05 Pulse Ox 98 06/30/20 12:05 - Exam Physical Examinations : -Constitutiona : Cooperative , not in acute distress . -HEENT : nech : supple , no Lymphadenopathy , normal thyroid size . : eyes : no ptosis , no icterus, no phot ophobia . - neurologic : Cranial nerve II to XII intact , no focal neurological deffecit . -psychatric : alert , oriented X 3 , appropriate affect , intact judgment and insight . -Lymphatic : no Lymphadenopathy . - musculoskeltal : Cervical Spine motor stregnth in the deltoid and biceps, normal right side , normal Left side motor stregnth biceps and the wrist extensors normal right side ,normal left side . motor stregnth in the triceps muscle . normal Right side , normal Left side deep tendon reflexes normal at the biceps , normal at Brachioradialis , normal at triceps. cervical facet loading test: Positive Bilaterally Spurling test= positive left. Neck distraction test= positive left. Oscar sign= positive left . Abduction and abduction on lateral rotation of the left shoulder associated with severe pain Lumber spine moter stegnth lower extremities ,thigh and legs 5/5 Right side , 5/5 Left side MRI of the cervical spine multilevel cervical degenerative disc disease, mul tilevel cervical facet arthropathy and foraminal stenosis at C3 4 and C4 5 and C5 6 Jed postoperative changes at C6 7 Assessment and Plan Plan: Assessment and plan=1-cervical degenerative disc disease. 2-cervical foraminal stenosis. 3-cervical spondylosis with cervical facet arthropathy without myelopathy. 4-left shoulder arthralgia. can benefit from cervical epidural steroid injection at C7-T1 left paramedian approach. - PQRS measures = - Patient's medications are documented in the chart. -Tobacco use is negative and counseling.Given. -Patient's has not received pneumococcal vaccine. -Advanced care planning discussed, patient not eligible. -Opiate contract not signed. -Pain positive and follow-up visit/procedure is scheduled. -Patient's blood pressure measured [122/79 ] , and documented in the record ,and patient will follow up with the primary care. -Patient's weight was measured and body mass index [ 34.9 ] above the normal limits and counseling was done. and patient instructed to follow-up with the primary care physician. -Patient was not identified as an unhealthy alcohol user Time with Patient: Less than 30
== END | disposition home or self-care (01) ==
CPT/HCPCS: 99211

== ENCOUNTER 2020-07-08 06:29 | Day surgery (SDC) | payer MEDICARE, OTHER ==
[2020-07-07 08:43] VITALS: BMI 33.3
[2020-07-08 06:57] VITALS: RESP 16; TEMP 97
[2020-07-08] MEDS ORDERED: LACTATED RINGERS 1,000 ML IV ONE (07:00)
[2020-07-08] MEDS ORDERED: LIDOCAINE 1% (10MG/ML) FOR IV START INTRADERMA ONE (07:01)
[2020-07-08] MEDS ORDERED: IOPAMIDOL M200 10 ML VIAL ONE (07:25)
[2020-07-08] MEDS ORDERED: DEXAMETHASONE SOD PHOSPHATE 10 MG/ML 1 ML VIAL ONE (07:25)
[2020-07-08] MEDS ORDERED: MIDAZOLAM 2 MG/2 ML VIAL ONE (07:25)
[2020-07-08] MEDS ORDERED: IV FLUID CONTINUATION 1,000 ML IV ONE (07:48)
[2020-07-08 08:00] VITALS: BP 114/75; PULSE 62
--- NOTE | 2020-07-08 08:14 | P.PCN ---
Date of Procedure: 07/08/20 Preoperative Diagnosis: Cervical degenerative disc disease, and the cervical radiculopathy Postoperative Diagnosis: Cervical degenerative disc disease, and a cervical radiculopathy Procedure(s) Performed: Cervical C7-T1 epidural steroid injection under fluoroscopic guidance Anesthesia: MAC Surgeon: Echo Huynh Description of Procedure: Anesthesia: Local: 1% Lidocaine, IV sedation : Midazolam 2 mg. Complications: None. Estimated blood loss: None Specimens removed: None Fluoroscopic image: saved to electronic medical records. Indications for Procedure: The patient has been suffering from neck pain and pain radiating to the upper extremity . Inadequate pain control with pharmacologic regimen. An inter-laminar approach cervical epidural steroid injection was scheduled for the patient. Procedure and Findings: The patient was seen and examined in the holding area. The written informed consent was obtained after explaining the risks, benefits, alternatives of the procedure to the patient. The patient was brought to the procedure room and was placed in the prone position on the operating table. A pillow was placed under the upper chest. Standard anesthesia monitoring was done through out the procedure. Timeout was completed. The skin preparation was done with ChloraPrep 1 and draping was done in usual sterile fashion. Sterile technique was observed throughout the procedure. Under fluoroscopic guidance, C7-T1 inter-laminar space was identified. 3 ml of 1% Lidocaine was injected with a 25 gauge needle to achieve adequate local anesthesia of the skin and subcutaneous tissue. A 20 gauge, 3.5 inch Tuohy type epidural needle was placed and gradually advanced up to the epidural space using loss of resistance technique and fluoroscopic guidance. Lateral, oblique fluoroscopic views confirm the needle position. No paresthesia was noted. A negative aspiration was confirmed and then 1 ml of Isovue-200 was injected. A go od dye spread was seen in the epidural space and it was negative for any intrathecal, intraneural or intravascular spread. A total of 5 ml solution containing 20 mg Dexamethasone, and 3 ml preservative-free Normal Saline was injected slowly with intermittent aspiration. The needle was removed intact, area was cleaned and bandage was applied. Disposition : The patient tolerated the procedure very well. The patient was transferred to the recovery room and remained stable until discharged home. The patient was given detailed discharge instructions for bleeding, infection, increased pain at the injection site, and was advised to seek immediate medical attention should significant side effects develop. The patient will be followed up with our Pain Clinic within 4 weeks for follow-up visit.
[2020-07-08] MEDS ORDERED: LACTATED RINGERS 1,000 ML IV SCH (08:15)
--- NOTE | 2020-07-08 13:06 | FL ---
Fluoroscopy INDICATION: Pain FINDINGS: Fluoroscopy time: 18 seconds. Images obtained: 3. IMPRESSIONS: 1. Documentation of fluoroscopy.
--- NOTE | 2020-07-08 13:52 | P.PCN ---
Date of Procedure: 07/08/20 Description of Procedure: Pre and postop diagnosis: Myofascial pain syndrome Procedure: Trigger point injections X 10 Muscle group X2 (bilateral quadratus lumborum, lumbar paraspinal) Surgeon: Echo Huynh Anesthesia: None Complications: None Estimated blood loss: None Specimen removed: None Procedure indications: Patient had a history of myofascial pain syndrome. Patient tried conservative therapy. Came here for intervention procedure for better pain relief. Procedure description: Patient was seen and identified in the holding area risk benefits competitions alternative discussed with the patient. Patient agreed to proceed for the procedure signed the consent. Patient taken to the procedure area. Timeout was completed. A total of 10 trigger point area was marked with a sterile marker. After ChloraPrep used to clean the area. Critical pause was taken. Using 25-gauge 1-1/[address]. He entered in each market site 2 mL of block solution injected at each level. The block solution containing 19 mL of ropivacaine 0.5% preservative-free bupivacaine with Kenlog 40 MG. Needle removed intact skin cleaned and Band-Aid applied. Patient tolerated the procedure well. Disposition: Patient discharge home after meeting the discharge criteria from the recovery. Patient scheduled to follow up with the pain clinic in 4 weeks for follow-up visit.
== END 2020-07-08 08:15 ==
LOC: ORPAIN 06:29
DX: M50.10 Cervical disc disorder with radiculopathy, unspecified cervical region (principal); K21.9 Gastro-esophageal reflux disease without esophagitis; E03.9 Hypothyroidism, unspecified; I10 Essential (primary) hypertension; Z98.890 Other specified postprocedural states; Z98.1 Arthrodesis status
CPT/HCPCS: 62321; J2250; J1100; Q9966; 99152

== ENCOUNTER → 2020-08-04 | Outpatient (CLI) | payer MEDICARE, OTHER ==
--- NOTE | 2020-08-04 11:27 | P.PN ---
Subjective Progress Note Date: 08/04/20 This is a follow-up visit for this 69 years old female with a chronic history of severe neck pain with radiation to the left shoulder, with occasional radiation to the left upper extremity associated with some numbness and tingling sensation in the left upper extremity, she had cervical fusion surgery done previously, and she had MRI of the cervical spine, which showed that she had multilevel cervical degenerative disc disease and multilevel cervical facet arthropathy and bilateral foraminal stenosis, recently we did cervical epidural steroid injections 2 , she had 0 benefits from it , she continued to have severe neck pain with radiation to the left shoulder area Physical Examinations : -Constitutiona : Cooperative , not in acute distress . -HEENT : nech : supple , no Lymphadenopathy , normal thyroid size . : eyes : no ptosis , no icterus, no photophobia . - neurologic : Cranial nerve II to XII intact , no focal neurological deffecit . -psychatric : alert , oriented X 3 , appropriate affect , intact judgment and insight . -Lymphatic : no Lymphadenopathy . - musculoskeltal : Cervical Spine motor stregnth in the deltoid and biceps, normal right side , normal Left side motor stregnth biceps and the wrist extensors normal right side ,normal left side . motor stregnth in the triceps muscle . normal Right side , normal Left side deep tendon reflexes normal at the biceps , normal at Brachioradialis , normal at triceps. cervical facet loading test: Positive Bilaterally Spurling test= positive left. Neck distraction test= positive left. Oscar sign= positive left . Abduction and abduction on lateral rotation of the left shoulder associated with severe pain Lumber spine moter stegnth lower extremities ,thigh and legs 5/5 Right side , 5/5 Left side MRI of the cervical spine multilevel cervical degenerative disc disease, multilevel cervical facet arthropathy and foraminal stenosis at C3 4 and C4 5 and C5 6 Jed postoperative changes at C6 7 Assessment and Plan Plan: Assessment and plan=1-cervical degenerative disc disease. 2-cervical foraminal stenosis. 3-cervical spondylosis with cervical facet arthropathy without myelopathy. 4-left shoulder arthralgia. she had no benefit from cervical epidural steroid injection x2. Patient will be good candidate to have diagnostic medial branch block cervical area left side C2, C3 , C4 ,C5 ( for C2-3,C3-4,C4-5) - PQRS measures = - Patient's medications are documented in the chart. -Tobacco use is negative and counseling.Given. -Patient's has not received pneumococcal vaccine. -Advanced care planning discussed, patient not eligible. -Opiate contract not signed. -Pain positive and follow-up visit/procedure is scheduled. -Patient's blood pressure measured [148/76 ] , and documented in the record ,and patient will follow up with the primary care. -Patient's weight was measured and body mass index [ 34.9 ] above the normal limits and counseling was done. and patient instructed to follow-up with the primary care physician. -Patient was not identified as an unhealthy alcohol user Objective - Vital Signs Vital signs: Vital Signs Temp 98.0 F 08/04/20 11:13 Pulse 84 08/04/20 11:13 Resp 16 08/04/20 11:13 BP 148/76 08/04/20 11:13 Pulse Ox 99 08/04/20 11:13
== END ==
CPT/HCPCS: 99211

== ENCOUNTER 2020-08-22 06:28 | Day surgery (SDC) | payer MEDICARE, OTHER ==
[2020-08-20 11:40] VITALS: BMI 34.4
[~2020-08-22 06:28] MED LIST changes: -ALPRAZolam 0.25 MG TAB PO PRN; -ALPRAZolam 0.5 MG TAB PO PRN; -ATORVASTATIN 80 MG TAB PO STA; +LACTATED RINGERS 1,000 ML IV SCH; -NITROGLYCERIN SL TABS 0.4 MG TAB SUBLINGUAL PRN; -SODIUM CHLORIDE 0.9% 1,000 ML in EMPTY BAG 1 BAG IV ONE
[2020-08-22 06:50] VITALS: RESP 16; TEMP 98.2
[2020-08-22] MEDS ORDERED: LIDOCAINE 1% (10MG/ML) FOR IV START INTRADERMA ONE (07:05)
[2020-08-22] MEDS ORDERED: fentaNYL (PF) 50 MCG/ML 2 ML AMP ONE (07:26)
[2020-08-22] MEDS ORDERED: MIDAZOLAM 2 MG/2 ML VIAL ONE (07:26)
[2020-08-22] MEDS ORDERED: methylPREDNISolone ACETATE 40 MG/ML 1 ML VIAL ONE (07:26)
[2020-08-22] MEDS ORDERED: ROPIVACAINE 5MG/ML 20ML VIAL ONE (07:26)
--- NOTE | 2020-08-22 07:47 | P.PCN ---
Date of Procedure: 08/22/20 Procedure(s) Performed: PREOPERATIVE DIAGNOSIS: Cervical Spondylosis with Facet Arthropathy.without myelopathy POSTOPERATIVE DIAGNOSIS: Cervical Spondylosis Facet Arthropathy. Without myelopathy PROCEDURES: Diagnostic , left C2 , C3, C4 , C5 , medial branch blocks, with fluoroscopic guidance (fluoroscopy images available in radiology department ) ( to target the facet joint at Left C 2-3 , C3-4 , C4- 5 , ) ANESTHESIA: Monitored anesthesia care as per anesthesia department. EBL: Minimal PROCEDURE INDICATION: The patient with neck pain secondary to cervical arthropathy unresponsive to more conservative treatments. PROCEDURE DESCRIPTION / TECHNIQUE: The patient was seen and identified in the preoperative area. Risks, benefits, complications, and alternatives were discussed with the patient, the patient agreed to proceed with the procedure and signed the consent. IV was started. Vital signs remained stable throughout the procedure. Patient was taken to the OR and time out was completed. The patient was placed in the prone position on the procedure table. A pillow was placed under the patients chest to increase the cervical interlaminar space. The cervical area was prepped and draped in the usual sterile fashion. Critical pause was taken. Vital signs were closely monitored during the procedure. Conscious sedation was used during the procedure to decrease patients anxiety. Using cross-table lateral fluoroscopy, the centroid of the trapezoid of Left C2 , C3, C4 , C5 was identified, marked, and localized with 1% lidocaine 1 ml at each level for skin and Sub Q infiltrations . Subsequently, a 22 G 4 spinal needle was advanced guided by fluoroscopy to the centroid of the trapezoid of Right C3, C4 , C5, C6 . [place] tip position was confirmed at the centroid of the trapezoids of Left C2 , C3 , C4 , C5 ,with anteroposterior fluoroscopy. Subsequently, 2 ml of preservative-free Ropivacaine 0.5% mixed with Depo- Medrol 20 mg and half ml of the mixture was injected after negative aspiration for blood and CSF. [place] was then removed intact .. COMPLICATIONS: No acute complications. DISPOSITION / PLANS: The patient was placed in a supine position and transferred to the recovery area in a stable condition for observation and was discharged from the recovery room after meeting discharge criteria. Home discharge instructions given to the patient by the staff. The patient was reexamined prior to discharge. The patient will schedule a follow up in the clinic in 2-4 weeks.
--- NOTE | 2020-08-22 07:56 | FL ---
Fluoroscopy History: FACET BLOCK Cervical facet block. Dr Chandra. 15 sec fluoro time.
[2020-08-22 08:03] VITALS: BP 124/75; PULSE 77
[2020-08-22] MEDS ORDERED: IV FLUID CONTINUATION 1,000 ML IV ONE (08:03)
== END 2020-08-22 08:24 | disposition home or self-care (01) ==
LOC: ORPAIN 06:28
PROVIDERS: ATTEND Specialist
DX: M47.812 Spondylosis without myelopathy or radiculopathy, cervical region (principal); J45.909 Unspecified asthma, uncomplicated; I10 Essential (primary) hypertension; E78.49 Other hyperlipidemia; G47.33 Obstructive sleep apnea (adult) (pediatric); E07.9 Disorder of thyroid, unspecified; K21.9 Gastro-esophageal reflux disease without esophagitis; Z98.1 Arthrodesis status; Z98.890 Other specified postprocedural states; Z88.5 Allergy status to narcotic agent; Z88.2 Allergy status to sulfonamides; Z88.6 Allergy status to analgesic agent; Z91.040 Latex allergy status
CPT/HCPCS: 64490; 64491; 64492; J2250; J1030; J3010; J2795

== ENCOUNTER → 2020-08-28 | Outpatient (CLI) | payer MEDICARE, OTHER ==
--- NOTE | 2020-08-28 22:23 | SFUN ---
SLEEP CENTER FOLLOW UP NOTE DATE OF SERVICE: 08/28/2020 This 69-year-old lady has been followed in Sleep Center for treatment of obstructive sleep apnea-hypopnea syndrome. The patient continues to use her equipment every night, but she still sometimes feels tired after waking up in the morning. She usually sleeps about 7 hours per night. [place] Sleepiness Scale today is 5, which is normal. I checked her CPAP unit. CPAP pressure is 10 cm of water. Usage is 30/30 nights and 28/30 nights for more than 4 hours, average 6.8 hours per night. Leak is zero L/minute. Apnea-hypopnea index is 5.8. During her previous visit it was 4.8. During the last night, apnea-hypopnea index was around 11. MEDICATIONS: 1. Levothyroxine 112 mcg once a day. 2. Duloxetine 60 mg once a day. 3. Losartan 100/25 mg once a day. 4. Lovastatin 20 mg once a day. 5. Lansoprazole 15 mg once a day. 6. Serevent inhaler. PHYSICAL EXAMINATION: GENERAL: A pleasant patient in no distress. VITAL SIGNS: BP 135/64, HR 68, RR 12, height 5 feet 7 inches, weight 219.2 pounds, temperature 96.9. Oxygen saturation at room air 99%. Body mass index 34.2. HEENT: PERRLA, EOMI. Evaluation of oropharynx showed tongue protrudes midline. Low position of soft palate. NECK: Supple. No JVD. Thyroid is not palpable. LUNGS: Clear to percussion and to auscultation. Good air exchange. No wheezing or rhonchi. HEART: S1, S2 regular. No murmurs, gallops or rubs. ABDOMEN: Soft and nontender. Bowel sounds are present. No organomegaly appreciated. EXTREMITIES: No clubbing or cyanosis. PARAGLIDING INSTRUCTOR: Awake, alert, and oriented X3. Cranial nerves 2 to 7 intact. There is no fasciculation or atrophy. noted. No focal deficits observed. IMPRESSION: 1. Obstructive sleep apnea-hypopnea syndrome. The patient demonstrated great compliance with treatment, benefitting from treatment. 2. Hypertension. 3. Hyperlipidemia. 4. Asthma. 5. Hypothyroidism. PLAN: 1. I changed regimen of the machine to automatic, range of the pressure 5 to 13 cm of water. 2. Patient will continue to use PAP equipment every night for the whole night. 3. Sleep hygiene with regular time in bed for at least 7-1/2 to 8 hours. 4. Precautions related to driving. No driving if feeling sleepiness. 5. I will maintain all necessary prescription for PAP supplies including mask, tube, filters. 6. Watching weight. 7. Follow-up visit in 6 months or earlier if patient has any problems. Thank you very much for allowing me to participate in the management of your patient. Sincerely, Elijah Dixon MD, PhD, FAASM Diplomat of [employer] Trauma Surgeon of [facility] [place] MMODL / IJN: [id number] /
== END ==
LOC: SLEEP 13:13
PROVIDERS: ATTEND Internal Medicine
DX: G47.33 Obstructive sleep apnea (adult) (pediatric) (principal); I10 Essential (primary) hypertension; E78.5 Hyperlipidemia, unspecified; J45.909 Unspecified asthma, uncomplicated; E03.9 Hypothyroidism, unspecified; Z79.890 Hormone replacement therapy; Z79.899 Other long term (current) drug therapy; Z87.891 Personal history of nicotine dependence

== ENCOUNTER → 2020-09-09 | Outpatient (CLI) | payer MEDICARE, OTHER ==
--- NOTE | 2020-09-09 16:21 | XR ---
EXAMINATION TYPE: XR knee complete RT DATE OF EXAM: 09/09/2020 CLINICAL HISTORY: Right knee pain 10 prior surgeries of the right knee. TECHNIQUE: Three views of the right knee are obtained. COMPARISON: None. FINDINGS: There is a probable chronic displaced fracture deformity of the right distal femur . (Prior studies cannot be obtained) This is traversed by a right knee prosthesis with distal femoral and pro ximal tibial, and patellar components. No evidence of radiographic loosening or infection. Bony remod eling of the mid to distal femur. Probable small joint effusion. Soft tissue calcifications. IMPRESSION: 1. Probable chronic displaced fracture deformity of the distal right femur with a total right knee pr osthesis. Distal femoral, proximal tibial and patellar arthroplasty components are intact. Comparison to prior study is recommended. This could not be obtained this time. If prior becomes available, thi s may be compared and radiology.
== END | disposition home or self-care (01) ==
LOC: RADXRMAIN 11:16
PROVIDERS: ATTEND Orthopaedic Surgery
DX: M25.561 Pain in right knee (principal)

== ENCOUNTER → 2020-09-09 | Outpatient (CLI) | payer MEDICARE, OTHER ==
--- NOTE | 2020-09-11 14:25 | MM ---
Reason for exam: screening (asymptomatic). Last mammogram was performed 1 year and 6 months ago. History: Patient is postmenopausal. Taking estrogen beginning at age 66. Physical Findings: A clinical breast exam by your physician is recommended on an annual basis and results should be correlated with mammographic findings. MG 3D Screening Mammo W/Cad Bilateral CC and MLO view(s) were taken. Prior study comparison: March 16, 2019, bilateral MG 3d screening mammo w/cad. March 15, 2018, bilateral MG screening mammo w CAD. The breast tissue is heterogeneously dense. This may lower the sensitivity of mammography. Focal asymmetry upper outer right brast zone B. ASSESSMENT: Incomplete: need additional imaging evaluation, BI-RAD 0 RECOMMENDATION: Special view mammogram of the right breast. If lesion persists on supplemental views, image directed ultrasound is recommended. [facility] will attempt to contact patient to return for supplemental views and ultrasound if indicated.
== END | disposition home or self-care (01) ==
LOC: RADMAMWWP 10:49
PROVIDERS: ATTEND Family Medicine
DX: Z12.31 Encounter for screening mammogram for malignant neoplasm of breast (principal); Z78.0 Asymptomatic menopausal state
CPT/HCPCS: 77063; 77067

== ENCOUNTER → 2020-09-18 | Outpatient (CLI) | payer MEDICARE, OTHER ==
--- NOTE | 2020-09-18 14:47 | MM ---
Reason for exam: additional evaluation requested from abnormal screening. Last mammogram was performed less than 1 month ago. History: Patient is postmenopausal. Taking estrogen beginning at age 66. Physical Findings: Nurse did not find any significant physical abnormalities on exam. MG 3D Work Up W/Cad RT Spot compression CC, spot compression MLO, and LM view(s) were taken of the right breast. Prior study comparison: September 09, 2020, bilateral MG 3d screening mammo w/cad. March 16, 2019, bilateral MG 3d screening mammo w/cad. The breast tissue is heterogeneously dense. This may lower the sensitivity of mammography. Stable appearing. No significant new findings when compared with previous films. These results were verbally communicated with the patient and result sheet given to the patient on 09/18/20. ASSESSMENT: Benign, BI-RAD 2 RECOMMENDATION: Return to routine screening mammogram schedule for both breasts.
== END | disposition home or self-care (01) ==
LOC: RADMAMWWP 13:43
PROVIDERS: ATTEND Family Medicine
DX: R92.2 Inconclusive mammogram (principal); Z78.0 Asymptomatic menopausal state
CPT/HCPCS: 77065; G0279; 77061

== ENCOUNTER 2020-09-19 07:37 | Day surgery (SDC) | payer MEDICARE, OTHER ==
[2020-09-17 16:07] VITALS: BMI 34.1
[2020-09-19 07:56] VITALS: TEMP 97.7
[2020-09-19] MEDS ORDERED: MIDAZOLAM 2 MG/2 ML VIAL ONE (08:33)
[2020-09-19] MEDS ORDERED: ROPIVACAINE 5MG/ML 20ML VIAL ONE (08:33)
[2020-09-19] MEDS ORDERED: fentaNYL (PF) 50 MCG/ML 2 ML AMP ONE (08:33)
[2020-09-19] MEDS ORDERED: methylPREDNISolone ACETATE 40 MG/ML 1 ML VIAL ONE (08:33)
--- NOTE | 2020-09-19 08:49 | P.PCN ---
Date of Procedure: 09/19/20 Procedure(s) Performed: PREOPERATIVE DIAGNOSIS: Cervical Spondylosis with Facet Arthropathy.without myelopathy POSTOPERATIVE DIAGNOSIS: Cervical Spondylosis Facet Arthropathy. Without myelopathy PROCEDURES: Diagnostic , left C2 , C3, C4 , C5 , medial branch blocks, with fluoroscopic guidance (fluoroscopy images available in radiology department ) ( to target the facet joint at Left C 2-3 , C3-4 , C4- 5 , ) ANESTHESIA: Monitored anesthesia care as per anesthesia department. EBL: Minimal PROCEDURE INDICATION: The patient with neck pain secondary to cervical arthropathy unresponsive to more conservative treatments. PROCEDURE DESCRIPTION / TECHNIQUE: The patient was seen and identified in the preoperative area. Risks, benefits, complications, and alternatives were discussed with the patient, the patient agreed to proceed with the procedure and signed the consent. IV was started. Vital signs remained stable throughout the procedure. Patient was taken to the OR and time out was completed. The patient was placed in the prone position on the procedure table. A pillow was placed under the patients chest to increase the cervical interlaminar space. The cervical area was prepped and draped in the usual sterile fashion. Critical pause was taken. Vital signs were closely monitored during the procedure. Conscious sedation was used during the procedure to decrease patients anxiety. Using cross-table lateral fluoroscopy, the centroid of the trapezoid of Left C2 , C3, C4 , C5 was identified, marked, and localized with 1% lidocaine 1 ml at each level for skin and Sub Q infiltrations . Subsequently, a 25 G 4 spinal needle was advanced guided by fluoroscopy to the centroid of the trapezoid of Leftt C3, C4 , C5, C6 . [place] tip position was confirmed at the centroid of the trapezoids of Left C2 , C3 , C4 , C5 ,with anteroposterior fluoroscopy. Subsequently, 2 ml of preservative-free Ropivacaine 0.5% mixed with Depo- Medrol 20 mg and half ml of the mixture was injected after negative aspiration for blood and CSF. [place] was then removed intact .. COMPLICATIONS: No acute complications. DISPOSITION / PLANS: The patient was placed in a supine position and transferred to the recovery area in a stable condition for observation and was discharged from the recovery room after meeting discharge criteria. Home discharge instructions given to the patient by the staff. The patient was reexamined prior to discharge. The patient will schedule a follow up in the clinic in 2-4 weeks.
[2020-09-19] MEDS ORDERED: IV FLUID CONTINUATION 1,000 ML IV ONE (08:50)
[2020-09-19 08:52] VITALS: RESP 18
--- NOTE | 2020-09-19 09:00 | FL ---
EXAMINATION TYPE: FL guided pain mgmt statistic DATE OF EXAM: 09/19/2020 CLINICAL HISTORY: Neck pain. TECHNIQUE: Fluoroscopy. COMPARISON: None. FINDINGS: Fluoroscopic guidance was provided during pain relief procedure performed by Dr. Chandra . A total of 6 seconds of fluoroscopic time was utilized during the procedure and 1 spot images are acquired. Single image acquired shows needle localization at multiple levels in the cervical spine. IMPRESSION: As Above.
[2020-09-19 09:11] VITALS: BP 134/78; PULSE 78
== END 2020-09-19 09:24 | disposition home or self-care (01) ==
LOC: ORPAIN 07:37
PROVIDERS: ATTEND Specialist
DX: M47.812 Spondylosis without myelopathy or radiculopathy, cervical region (principal); I10 Essential (primary) hypertension; G47.33 Obstructive sleep apnea (adult) (pediatric); E07.9 Disorder of thyroid, unspecified; Z79.82 Long term (current) use of aspirin; Z88.2 Allergy status to sulfonamides; Z88.8 Allergy status to other drugs, medicaments and biological substances; Z79.899 Other long term (current) drug therapy
CPT/HCPCS: 64490; 64491; 64492; J2250; J1030; J3010; J2795

== ENCOUNTER → 2020-10-15 | Outpatient (CLI) | payer MEDICARE, OTHER ==
[2020-10-15 11:03] VITALS: BP 139/81; PULSE 77; RESP 16; TEMP 98
--- NOTE | 2020-10-15 11:06 | P.PAINPG ---
Subjective Progress Note Date: 10/15/20 This is a follow-up visit for this 70 years old female with a chronic history of severe neck pain with radiation to the left shoulder, with occasional radiation to the left upper extremity associated with some numbness and tingling sensation in the left upper extremity, she had cervical fusion surgery done previously, and she had MRI of the cervical spine, which showed that she had multilevel cervical degenerative disc disease and multilevel cervical facet arthropathy and bilateral foraminal stenosis, recently we did cervical epidural steroid injections 2 , she had 0 benefits from it , she continued to have severe neck pain with radiation to the left shoulder area. Hence we performed left C2-3, C3-4, C4-5 MBB x2. Here for followup today. Reports that she had 100% relief with both medial branch blocks. She was very happy with the procedures and they were able to help her significantly with her functionality. She had some questions about the ablation including how the procedure is done and how long the pain relief is expected to last. I educated her that it can often take one to 2 weeks for the ablation to start working, there can be some soreness after that can be treated with ice and Motrin, and the relief, lasting between 6 and 12 months or longer. Physical Examinations : -Constitutiona : Cooperative , not in acute distress . -HEENT : nech : supple , no Lymphadenopathy , normal thyroid size . : eyes : no ptosis , no icterus, no photophobia . - neurologic : Cranial nerve II to XII intact , no focal neurological deffecit . -psychatric : alert , oriented X 3 , appropriate affect , intact judgment and insight . -Lymphatic : no Lymphadenopathy . - musculoskeltal : Cervical Spine motor stregnth in the deltoid and biceps, normal right side , normal Left side motor stregnth biceps and the wrist extensors normal right side ,normal left side . motor stregnth in the triceps muscle . normal Right side , normal Left side deep tendon reflexes normal at the biceps , normal at Brachioradialis , normal at triceps. cervical facet loading test: Positive Bilaterally Spurling test= positive left. Neck distraction test= positive left. Oscar sign= positive left . Abduction and abduction on lateral rotation of the left shoulder associated with severe pain Lumber spine moter stegnth lower extremities ,thigh and legs 5/5 Right side , 5/5 Left side MRI of the cervical spine multilevel cervical degenerative disc disease, multilevel cervical facet arthropathy and foraminal stenosis at C3 4 and C4 5 and C5 6 Jed postoperative changes at C6 7 Assessment and Plan Plan: Assessment and plan=1-cervical degenerative disc disease. 2-cervical foraminal stenosis. 3-cervical spondylosis with cervical facet arthropathy without myelopathy. 4-left shoulder arthralgia. she had no benefit from cervical epidural steroid injection x2. Patient will be good candidate to have RFA left side C2, C3 , C4 ,C5 ( for C2-3,C3-4,C4-5) I have spent 25 minutes with chart reviewing the patient, speaking to the patient, and discussing plan of care with the patient - PQRS measures = - Patient's medications are documented in the chart. -Tobacco use is negative and counseling.Given. -Patient's has not received pneumococcal vaccine. -Advanced care planning discussed, patient not eligible. -Opiate contract not signed. -Pain positive and follow-up visit/procedure is scheduled. -Patient's blood pressure measured [148/76 ] , and documented in the record ,and patient will follow up with the primary care. -Patient's weight was measured and body mass index [ 34.9 ] above the normal limits and counseling was done. and patient instructed to follow-up with the primary care physician. -Patient was not identified as an unhealthy alcohol user Objective - Vital Signs Vital signs: Intake & Output 10/13/20 10/14/20 10/14/20 18:59 06:59 18:59 Weight 98.43 kg PQRS Measure Charge Sheet PQRS Narrative: Smoking Status Former smoker Pain Intensity [Neck] 6 Scale Used Numeric (1 - 10) Hx Alcohol Use (MH) Yes Home Medications: Ambulatory Orders Losartan/Hydrochlorothiazide [Hyzaar 100-25 Tablet] 1 tab PO HS 03/26/16 Albuterol Sulfate [Proair Respiclick] 1 puff PO Q6HR PRN 05/14/20 Cholecalciferol [Vitamin D3 (25 Mcg = 1000 Iu)] 50 mcg PO DAILY 05/14/20 DULoxetine HCL [Cymbalta] 60 mg PO HS 05/14/20 Levothyroxine Sodium 112 mcg PO DAILY 05/14/20 Lovastatin [Mevacor] 20 mg PO HS 05/14/20 Salmeterol Xinafoate [Serevent Diskus] 50 mcg IH BID 05/14/20 Fluticasone Nasal [place] [Flonase Nasal [place]] 1 spray NASAL DAILY 08/22/20 Estradiol [Yuvafem] 10 mcg VG TUFR 09/17/20 Lansoprazole [Prevacid] 15 mg PO DAILY 09/17/20 Controlled Substance Measures - Controlled Substance Measures Is patient prescribed a controlled substance at discharge?: No
== END ==
LOC: PNWHC3 10:49
PROVIDERS: ATTEND Anesthesiology
DX: M50.30 Other cervical disc degeneration, unspecified cervical region (principal); M48.02 Spinal stenosis, cervical region; M47.812 Spondylosis without myelopathy or radiculopathy, cervical region; M25.512 Pain in left shoulder; Z88.6 Allergy status to analgesic agent; Z88.1 Allergy status to other antibiotic agents; Z91.040 Latex allergy status; Z88.2 Allergy status to sulfonamides; Z88.8 Allergy status to other drugs, medicaments and biological substances; Z87.891 Personal history of nicotine dependence
CPT/HCPCS: 99211

== ENCOUNTER 2020-10-24 11:20 | Day surgery (SDC) | payer MEDICARE, OTHER ==
[2020-10-22 15:33] VITALS: BMI 34.0
[2020-10-24 12:13] VITALS: TEMP 98.5
[2020-10-24] MEDS ORDERED: LACTATED RINGERS 1,000 ML IV ONE ×2 (12:22)
[2020-10-24] MEDS ORDERED: MIDAZOLAM 2 MG/2 ML VIAL ONE (12:25)
[2020-10-24] MEDS ORDERED: fentaNYL (PF) 50 MCG/ML 2 ML AMP ONE (12:25)
[2020-10-24] MEDS ORDERED: ROPIVACAINE 5MG/ML 20ML VIAL ONE (12:26)
[2020-10-24] MEDS ORDERED: LIDOCAINE 1% INJ 10MG/ML (20 ML MDV) ONE (12:26)
[2020-10-24] MEDS ORDERED: IV FLUID CONTINUATION 1,000 ML IV ONE (13:04)
[2020-10-24 13:08] VITALS: RESP 16
[2020-10-24 13:20] VITALS: BP 118/76; PULSE 76
[2020-10-24] MEDS ORDERED: KETOROLAC 15 MG/ML 1 ML VIAL IVP ONE (13:30)
[2020-10-24] MEDS ORDERED: KETOROLAC 15 MG/ML 1 ML VIAL ONE (13:33)
--- NOTE | 2020-10-24 16:15 | FL ---
Fluoroscopy HISTORY: Pain 40 seconds fluoroscopy time supplied to the referring clinician. 2 intraoperative C-arm images docum ent the procedure. See dictated report from anesthesia.
--- NOTE | 2020-10-28 09:09 | P.PCN ---
Date of Procedure: 10/24/20 Description of Procedure: PREOPERATIVE DIAGNOSIS: Cervicalgia POSTOPERATIVE DIAGNOSIS: Same Surgeon: Guilherme Dockery M.D. PROCEDURE PERFORMED: Cervical Medial Branch Radiofrequency Ablation, at the following levels: L TON C3 C4 C5 ANESTHESIA: Lidocaine 1% 10 mL, Monitored anesthesia care with anesthesia team ESTIMATED BLOOD LOSS: Minimal Fluoroscopy was used for the procedure and images were saved in the radiology portion of the chart. PROCEDURE INDICATION: The patient with neck pain secondary to cervical facet arthropathy who had more than 50% relief of pain with previous diagnostic lumbar medial branch block X2. PROCEDURE DESCRIPTION / TECHNIQUE: The patient was seen and identified in the preoperative area. Risks, benefits, complications, including but not limited to risk of infection ,bleeding , allergic reactions to the medications and incomplete pain relief , and alternatives were discussed with the patient, the patient agreed to proceed with the procedure and signed the consent. IV was started. The operative site was marked. Patient was taken to the OR and time out was completed. The patient was placed in the prone position on the procedure table. The lumbar area was prepped and draped in the usual sterile fashion. . Vital signs were closely monitored during the procedure .IV sedation was used during the procedure to decrease patients anxiety. An AP fluoroscopic clay mine cutting machine operator film was taken to identify the dens, the C2 C3 C4 C5 vertebral bodies, and the waists of the articular pillars at the aforementioned levels [] levels. A pillar (caudal tilt) view was utilized to highlight the waists of the articular pillars at these levels. The skin was prepped with chlorhexidine and draped in the usual sterile fashion. The skin and subcutaneous tissue overlying the above levels were anesthetized using a 25-gauge 1-1/2-inch needle with 1% preservative free lidocaine for a total volume of 1 ml per level. An 20-gauge and 100 mm SMK needle with a 10 mm active tip was advanced, coaxially, in the pillar view until the needle tip was noted to slide into the groove of the articular pillar. A true lateral view was obtained and the needle tips were advanced to cover to the []lateral aspect C2-3 joint line [TON], lateral aspect of the articular pillar at left C3 C4 C5, for corresponding medial branch ablation. The needles were advanced until bony contact was felt and the tip of the SMK needle was confirmed to be in the groove of the left waist of the articular pillars at the aforementioned levels. The needle positions were confirmed with AP and lateral fluoroscopic views. Motor stimulation was then performed at 2 Hz and up to 2V with only paraspinal muscle contraction noted at each level and no upper extremity stimulation. At this point, after negative aspiration, Bupivacaine 0.5% x 0.5 mL was injected at each level prior to radiofrequency ablation. Lesioning was then carried out at 85 degrees Celsius times 90 seconds with 2 cycles per level. Following lesioning the needles were removed. COMPLICATIONS: No acute complications. DISPOSITION / PLANS: The patient was placed in a supine position and transferred to the recovery area in a stable condition for observation and was discharged from the recovery room after meeting discharge criteria. Home disc harge instructions given to the patient by the staff. The patient will follow up in clinic in 4 weeks.
== END 2020-10-24 14:03 | disposition home or self-care (01) ==
LOC: ORPAIN 11:20
PROVIDERS: ATTEND Anesthesiology
DX: M54.2 Cervicalgia (principal); I10 Essential (primary) hypertension; E78.5 Hyperlipidemia, unspecified; I34.1 Nonrheumatic mitral (valve) prolapse; G47.33 Obstructive sleep apnea (adult) (pediatric); J45.909 Unspecified asthma, uncomplicated; Z87.891 Personal history of nicotine dependence; Z88.2 Allergy status to sulfonamides; Z88.8 Allergy status to other drugs, medicaments and biological substances; Z91.040 Latex allergy status; F41.9 Anxiety disorder, unspecified; K21.9 Gastro-esophageal reflux disease without esophagitis; E07.9 Disorder of thyroid, unspecified; Z79.899 Other long term (current) drug therapy
CPT/HCPCS: 64633; 64634; J2250; J2001; J3010; J1885; J2795

== ENCOUNTER → 2020-11-18 | Outpatient (CLI) | payer MEDICARE, OTHER ==
--- NOTE | 2020-11-18 13:45 | US ---
EXAMINATION TYPE: US thyroid st tissue head/neck DATE OF EXAM: 11/18/2020 COMPARISON: US 10/29/2019 CLINICAL HISTORY: E04.1 thyroid nodule. Patient has been taking thyroid medication for 40 years GLAND SIZE: Right Lobe: 3.1 X 1.0 X 0.9 cm Overall Parenchyma: heterogenous Left Lobe: 2.8 x 0.8 x 0.7 cm Overall Parenchyma: heterogeneous Isthmus Thickness: 0.2 cm NODULES RIGHT: # of nodules measured on right: 0 LEFT: # of nodules measured on left: 0 ISTHMUS: # of nodules measured in the isthmus: 0 Bilateral neck scanned, no evidence of lymphadenopathy. IMPRESSION: Both thyroid lobes are heterogenous over there is no evidence for discrete nodule. 2017 ACR TI-RADS LEVEL: *Highest TI-RADS level nodule reported
== END | disposition home or self-care (01) ==
LOC: RADUSWWP 13:00
PROVIDERS: ATTEND Internal Medicine Endocrinology, Diabetes & Metabolism
DX: Z03.89 Encounter for observation for other suspected diseases and conditions ruled out (principal)
CPT/HCPCS: 76536; 84443

== ENCOUNTER → 2020-11-24 | Outpatient (CLI) | payer MEDICARE, OTHER ==
[2020-11-24 11:15] VITALS: BP 137/72; PULSE 80; RESP 18; TEMP 98.1
--- NOTE | 2020-11-24 11:39 | P.PN ---
Subjective Progress Note Date: 11/24/20 This is a follow-up visit for this 70 years old female with a chronic history of severe neck pain with radiation to the left shoulder, with occasional radiation to the left upper extremity associated with some numbness and tingling sensation in the left upper extremity, she had cervical fusion surgery done previously, and she had MRI of the cervical spine, which showed that she had multilevel cervical degenerative disc disease and multilevel cervical facet arthropathy and bilateral foraminal stenosis, previousley we did cervical epidural steroid injections 2 , she had 0 benefits from it , but recently within the RFA of the medial branch cervical area, she continued to have severe neck pain with radiation to the left shoulder area, the pain is constant and increases with any activity, as any motor or sensory deficit Physical Examinations : -Constitutiona : Cooperative , not in acute distress . -HEENT : nech : supple , no Lymphadenopathy , normal thyroid size . : eyes : no ptosis , no icterus, no photophobia . - neurologic : Cranial nerve II to XII intact , no focal neurological deffecit . -psychatric : alert , oriented X 3 , appropriate affect , intact judgment and insight . -Lymphatic : no Lymphadenopathy . - musculoskeltal : Cervical Spine motor stregnth in the deltoid and biceps, normal right side , normal Left side motor stregnth biceps and the wrist extensors normal right side ,normal left side . motor stregnth in the triceps muscle . normal Right side , normal Left side deep tendon reflexes normal at the biceps , normal at Brachioradialis , normal at triceps. cervical facet loading test: Positive Bilaterally Spurling test= positive left. Neck distraction test= positive left. Oscar sign= positive left . Multiple trigger point identified in the left side cervical paraspinal muscles Abduction and abduction on lateral rotation of the left shoulder associated with severe pain Lumber spine moter stegnth lower extremities ,thigh and legs 5/5 Right side , 5/5 Left side MRI of the cervical spine multilevel cervical degenerative disc disease, multilevel cervical facet arthropathy and foraminal stenosis at C3 4 and C4 5 and C5 6 Jed postoperative changes at C6 7 Assessment and Plan Plan: Assessment and plan=1-cervical degenerative disc disease. 2-cervical foraminal stenosis. 3-cervical spondylosis with cervical facet arthropathy without myelopathy. 4-left shoulder arthralgia. she had no benefit from cervical epidural steroid injection x2. Patient continue to have severe neck pain after RFA medial branch block cervical area left side C2, C3 , C4 ,C5 Patient could benefit from trigger point injection left side cervical paraspinal muscles - PQRS measures = - Patient's medications are documented in the chart. -Tobacco use is negative and counseling.Given. -Patient's has not received pneumococcal vaccine. -Advanced care planning discussed, patient not eligible. -Opiate contract not signed. -Pain positive and follow-up visit/procedure is scheduled. -Patient's blood pressure measured [137/72 ] , and documented in the record ,and patient will follow up with the primary care. -Patient's weight was measured and body mass index [ 34.5 ] above the normal limits and counseling was done. and patient instructed to follow-up with the primary care physician. -Patient was not identified as an unhealthy alcohol user Objective - Vital Signs Vital signs: Vital Signs Temp 98.1 F 11/24/20 11:10 Pulse 80 11/24/20 11:10 Resp 18 11/24/20 11:10 BP 137/72 11/24/20 11:10 Pulse Ox 97 11/24/20 11:10
== END ==
LOC: PNWHC3 10:53
PROVIDERS: ATTEND Specialist
DX: M50.30 Other cervical disc degeneration, unspecified cervical region (principal); M25.512 Pain in left shoulder; M48.02 Spinal stenosis, cervical region; M47.812 Spondylosis without myelopathy or radiculopathy, cervical region; Z88.6 Allergy status to analgesic agent; Z91.040 Latex allergy status; Z88.8 Allergy status to other drugs, medicaments and biological substances; Z88.2 Allergy status to sulfonamides; Z88.3 Allergy status to other anti-infective agents; Z87.891 Personal history of nicotine dependence
CPT/HCPCS: 99211

== ENCOUNTER → 2020-12-23 | Day surgery (SDC) | payer MEDICARE, OTHER ==
[2020-12-18 10:34] VITALS: BMI 34.4
[~2020-12-23] MED LIST changes: +ROPIVACAINE 5MG/ML 20ML VIAL ONE; +methylPREDNISolone ACETATE 40 MG/ML 1 ML VIAL ONE
[2020-12-23 07:24] VITALS: RESP 16; TEMP 97.8
--- NOTE | 2020-12-23 08:11 | P.PCN ---
Date of Procedure: 12/23/20 Procedure(s) Performed: PREOPERATIVE DIAGNOSIS: 1-Cervical Spondylosis with Facet Arthropathy.without myelopathy. 2-myofascial pain syndrome left side cervical area POSTOPERATIVE DIAGNOSIS: Same as preoperative diagnoses. PROCEDURES: Trigger point injection left side recurrent paraspinal muscles , trapezius muscle, rhomboid muscle (total of 5 trigger point injected on the left side cervical paraspinal muscles/trapezius muscle and rhomboid muscles ) ANESTHESIA=none EBL: Minimal PROCEDURE INDICATION: The patient with neck pain secondary to myofascial pain syndrome left side recovery area and, cervical arthropathy unresponsive to more conservative treatments. PROCEDURE DESCRIPTION / TECHNIQUE: The patient was seen and identified in the preoperative area. Risks, benefits, complications, and alternatives were disc ussed with the patient, the patient agreed to proceed with the procedure and signed the consent, Vital signs remained stable throughout the procedure. Patient was taken to the OR and time out was completed. The patient was placed in the sitting position on the procedure table. The cervical area was prepped and draped in the usual sterile fashion. Critical pause was taken. Vital signs were closely monitored during the procedure. Each of the trigger point that is marked in the preop holding area each one of them injected with mixture of ropivacaine 0.5% and 40 mg of Depo-Medrol mixed together, and 2 mL of the mixture injected at each trigger point after negative aspiration, section done using 25-gauge needle and there was no paresthesia during the injection and there was negative aspiration for heme or cerebrospinal fluid, and tolerated the procedure well COMPLICATIONS: No acute complications. DISPOSITION / PLANS: The patient was placed in a supine position and transferred to the recovery area in a stable condition for observation and was discharged from the recovery room after meeting discharge criteria. Home discharge instructions given to the patient by the staff. The patient was reexamined prior to discharge. The patient will schedule a follow up in the clinic in 2-4 weeks.
[2020-12-23 08:19] VITALS: BP 124/85; PULSE 65
== END ==
LOC: ORPAIN 06:56
PROVIDERS: ATTEND Specialist
DX: M47.812 Spondylosis without myelopathy or radiculopathy, cervical region (principal)
CPT/HCPCS: 20553; J1030; J2795

== ENCOUNTER → 2021-01-21 | Outpatient (CLI) | payer MEDICARE, OTHER ==
[2021-01-21 12:30] VITALS: BP 146/84; PULSE 71; RESP 18; TEMP 99.1
--- NOTE | 2021-01-21 13:52 | P.PN ---
Subjective Progress Note Date: 01/21/21 Principal diagnosis: cervical pain, and left shoulder pain Ms. Wood is a 70 -year-old pleasant female came to the [facility] pain clinic forpostprocedure evaluation . Patient has ongoing pain for many years. patient had left cervical paraspinal trigger points on 12/23/2020 had a great pain relief. But she still complaining pain in her left shoulder area, and left trapezius area. Patient describes pain is aching, throbbing, constant type of pain. Pain is radiating to shoulder area Patient rated pain levels are 7-8 out of 10 in severity. With the help of medications pain levels are 5-6 out of 10 in severity. Activities making pain worse. Medications, resting, interventional procedures helping in relieving patient's pain. Patient pain some days better than others. Overall activities decreased secondary to pain. Because of the pain sometimes patient is feeling lack of sleep, interest, and energy. Denied any bowel or bladder problems at this time. Patient using any walking aids for walking support. Patient denied any suicidal ideas/homicidal ideas at this time. Patient denied any red flag symptoms related to pain.MRI of the left shoulder done on 03/25/2020 showed-tendinosis of the rotator cuff with supraspinatus, and infraspinatus tendon on frying and small low-grade partial tear of the supraspinatus tendon. Mild nonspecific edema in the infraspinatus muscle. Subdeltoid bursitis.. Patient had 2 corticosteroid injections in her left shoulder area by her orthopedic surgeon. Not helpful. Not recommended any surgery at this time. Objective - Vital Signs Vital signs: Vital Signs Temp 99.1 F 01/21/21 12:26 Pulse 71 01/21/21 12:26 Resp 18 01/21/21 12:26 BP 146/84 01/21/21 12:26 Pulse Ox 97 01/21/21 12:26 Intake & Output 01/20/21 01/21/21 01/21/21 18:59 06:59 18:59 Weight 99.79 kg - Exam General: Well-developed, well-nourished, no acute distress HEENT: Normocephalic, and atraumatic Neck: Supple, no neck swelling Psychiatric: Appropriate mood, and affect CREW SCHEDULER: No focal neurological deficits Musculoskeletal: Upper extremity: Normal strength, and range of motiona decreased on leftshoulder area secondary to pain. Sensation grossly intact. patient had worsening pain above 90 of the abduction. And patient had difficulty in performing external rotation of the left shoulder area. Lower extremity: Normal strength, and decreased range of motion secondary to pain Cervical spine: Paravertebral tenderness: Positive Cervical spine facet brea: Positive Cervical spine Spurling test:negative Multiple trigger points positive over left side trapezius, and shoulder area. - Constitutional Constitutional Comment(s): 13 point review of symptoms negative except as mentioned in history of present illness. Assessment and Plan Assessment: myofascial pain syndrome Cervical spondylosis without myelopathy Left shoulder chronic pain syndrome, tendinosis of the rotator cuff with blake praspinatus, and infra spinatus tendon. Subdeltoid bursitis Chronic pain syndrome Plan: #1 Opioid, and psychological risk tools, and scores were reviewed. Diagnoses, prognosis, and multiple treatment options including but not limited to physical therapy, interventional therapy, adjunct medication therapy, narcotic medication, and surgical options were discussed with the patient. And all questions were answered to the patient's satisfaction. #2 treatment plan agreement : Patient was thoroughly discussed regarding the treatment options, alternatives, and importance of exercises as tolerated. Patient clearly understood. #3 Patient was counseled on importance of regular exercise. Including amara chi, aerobic exercises as tolerated. Which helps for chronic pain, and overall well- being. Patient also counseled regarding importance of weight control rolling chronic pain, and overall other health issues. By altering diet habits, minimizing sugar intake, and processed foods helps in minimizing Inflammation. #4 investigations: MAPS- reviewed , urine drug test- reviewed #5 diagnostic tests: none #6 consultation :none # 7 interventional procedures: left trapezius trigger point injections, and left suprascapular nerve block Procedure, complications, alternatives discussed with the patient. #8 medications magnesium oxide 400 mg by mouth daily Medication side effects, complications, long-term consequences discussed with the patient. Patient recommended to contact the pain clinic if noticed any issues with given medications. #9 morphine milligrams equivalents dose ( MME) per day: 0 # 10 TENS unit's, and percussion massage device #11 disposition: scheduled to follow up with pain clinic in2-4 weeks duration. Time with Patient: Less than 30
== END ==
LOC: PNWHC3 12:16
DX: M47.812 Spondylosis without myelopathy or radiculopathy, cervical region (principal); G89.4 Chronic pain syndrome; M79.18 Myalgia, other site; M67.813 Other specified disorders of tendon, right shoulder; M75.52 Bursitis of left shoulder; Z88.6 Allergy status to analgesic agent; Z91.040 Latex allergy status; Z88.8 Allergy status to other drugs, medicaments and biological substances; Z88.2 Allergy status to sulfonamides; Z88.3 Allergy status to other anti-infective agents; Z87.891 Personal history of nicotine dependence
CPT/HCPCS: 99211

== ENCOUNTER → 2021-04-27 | Outpatient (CLI) | payer MEDICARE, OTHER | END | disposition home or self-care (01) | LOC: LABWHC1 09:53 | PROVIDERS: ATTEND Internal Medicine Endocrinology, Diabetes & Metabolism | DX: E03.8 Other specified hypothyroidism (principal) | CPT/HCPCS: 36415; 84443 ==

== ENCOUNTER → 2021-07-23 | Outpatient (CLI) | payer MEDICARE, OTHER ==
[2021-07-23 18:24] LABS: Chol/HDL Ratio 4.15 Ratio
== END | disposition home or self-care (01) ==
LOC: LABWHC1 11:33
PROVIDERS: ATTEND Nurse Practitioner Family
DX: Z00.00 Encounter for general adult medical examination without abnormal findings (principal)
CPT/HCPCS: 36415; 80061; 83036; 84443

== ENCOUNTER 2021-08-05 08:44 | Day surgery (SDC) | payer MEDICARE, OTHER ==
[2021-08-04 10:13] VITALS: BMI 34.4
[~2021-08-05 08:44] MED LIST changes: -LACTATED RINGERS 1,000 ML IV SCH; -ROPIVACAINE 5MG/ML 20ML VIAL ONE; +ceFAZolin 1,000 MG in SODIUM CHLORIDE 0.9% IRRIGATIO 1,000 ML IRRIGATION PRN; -methylPREDNISolone ACETATE 40 MG/ML 1 ML VIAL ONE
[2021-08-05] MEDS ORDERED: ONDANSETRON 4 MG/2 ML VIAL IVP ONE (09:22)
[2021-08-05] MEDS ORDERED: LIDOCAINE 1% (10MG/ML) FOR IV START INTRADERMA PRN (09:22)
[2021-08-05] MEDS ORDERED: DEXAMETHASONE SOD PHOSPHATE 4 MG/ML 1 ML VIAL IV ONE (09:22)
[2021-08-05] MEDS ORDERED: MIDAZOLAM 2 MG/2 ML VIAL IV PRN (09:22)
[2021-08-05] MEDS: LACTATED RINGERS 1,000 ML IV SCH (09:30)
[2021-08-05] MEDS ORDERED: PHENYLEPHRINE-0.9% NACL SYG 1,000 MCG/10 ML SYRINGE ONE (11:27)
[2021-08-05] MEDS ORDERED: LIDOCAINE 1% INJ 10MG/ML (20 ML MDV) ONE (11:27)
[2021-08-05] MEDS ORDERED: GLYCOPYRROLATE 0.2 MG/ML 2 ML VIAL ONE (11:27)
[2021-08-05] MEDS ORDERED: HYDROmorphone (PF) 1 MG/ML ONE (11:27)
[2021-08-05] MEDS ORDERED: MIDAZOLAM 2 MG/2 ML VIAL ONE (11:27)
[2021-08-05] MEDS ORDERED: SUCCINYLCHOLINE CHLORIDE 100 MG/5 ML SYR IV ONE (11:27)
[2021-08-05] MEDS ORDERED: fentaNYL (PF) 50 MCG/ML 2 ML AMP ONE (11:27)
[2021-08-05] MEDS ORDERED: ROCURONIUM 10 MG/ML (5 ML VIAL) IV ONE (11:27)
[2021-08-05] MEDS ORDERED: PROPOFOL 10 MG/ML 20 ML VIAL IV ONE (11:27)
[2021-08-05] MEDS ORDERED: NEOSTIGMINE 1 MG/ML 10 ML VIAL ONE (11:27)
[2021-08-05] MEDS ORDERED: LIDOCAINE 0.5%-EPI 1:200,000 50 ML VIAL SQ ONE (11:30)
[2021-08-05] MEDS ORDERED: THROMBIN (BOVINE) 5,000 UNIT VIAL TOPICAL ONE (11:30)
[2021-08-05] MEDS ORDERED: GELATIN SPONGE,ABSORB (LARGE) 1 EACH SPONGE TOPICAL ONE (11:30)
--- NOTE | 2021-08-05 12:35 | XR ---
EXAMINATION TYPE: XR cervical spine 1V DATE OF EXAM: 08/05/2021 COMPARISON: None HISTORY: Needle placement TECHNIQUE: Lateral cervical spine FINDINGS: Metallic device directed towards the C4-5 disc level. Endotracheal tube is present anterior ly. IMPRESSION: 1. Metallic device directed towards C4-5 disc level.
[2021-08-05] MEDS ORDERED: LACTATED RINGERS 1,000 ML IV ONE (13:01)
--- NOTE | 2021-08-05 13:43 | XR ---
EXAMINATION TYPE: XR cervical spine 1V DATE OF EXAM: 08/05/2021 COMPARISON: 08/05/2021 HISTORY: Hardware placement TECHNIQUE: Lateral cervical spine FINDINGS: Anterior cervical fusion is present at C3-C5. Disc spacers are present C3-4 C4-5. Endotracheal tube is in the anterior spine. IMPRESSION: 1. Status post anterior cervical fusion C3-C5.
[2021-08-05] MEDS: HYDROmorphone 0.5 MG/0.5 ML SYRINGE IVP PRN ×3 (13:55→19:27)
[2021-08-05] MEDS ORDERED: BENZOCAINE/MENTHOL LOZENG 1 EACH LOZENGE MUCOUS MEM PRN (13:59)
[2021-08-05] MEDS ORDERED: CYCLOBENZAPRINE 10 MG TAB PO PRN (13:59)
[2021-08-05] MEDS ORDERED: diazePAM 5 MG TAB PO PRN (13:59)
[2021-08-05] MEDS ORDERED: ONDANSETRON 4 MG/2 ML VIAL IVP PRN (13:59)
[2021-08-05] MEDS ORDERED: diphenhydrAMINE 50 MG/ML 1 ML VIAL ONE (14:04)
[2021-08-05] MEDS ORDERED: diphenhydrAMINE 50 MG/ML 1 ML VIAL IVP ONE (14:06)
--- NOTE | 2021-08-05 14:07 | P.OP ---
Date of Procedure: 08/05/21 Preoperative Diagnosis: Herniated nucleus pulposis C3 4 C4 5, history of prior spinal fusion with retained hardware C5-C6 7, cervical stenosis C3 4 C4 5, cervical radiculopathy, neck pain, upper extremity weakness Postoperative Diagnosis: Same Anesthesia: GETA Pathology: none sent Condition: stable Disposition: PACU Description of Procedure: BRIEF OPERATIVE NOTE Preoperative Diagnosis:Herniated nucleus pulposis C3 4 C4 5, history of prior spinal fusion with retained hardware C5-C6 7, cervical stenosis C3 4 C4 5, cervical radiculopathy, neck pain, upper extremity weakness Postoperative Diagnosis:Herniated nucleus pulposis C3 4 C4 5, history of prior spinal fusion with retained hardware C5-C6 7, cervical stenosis C3 4 C4 5, cervical radiculopathy, neck pain, upper extremity weakness Procedure: Removal of anterior cervical plate 56 and 7 from the deep bone, Expiration of fusion 56 and C6 7 with findings of solid fusion Anterior cervical decompression with discectomy and fusion C3 4 C4 5 Placement of interbody graft C3 4 C4 5 Application of anterior cervical plate C3 4 5 Surgeon: Dr. Robert Trimmer Climber: Wilbur Taylor is present throughout the entire the case persistence during positioning, dissection, exposure, visualization, and all crucial elements of the case as well as closure. Anesthesia: General anesthesia Estimated blood loss: Approximately 50 mL Complications: None apparent Components implanted: We removed the prior anterior cervical plate and 6 screws which were examined and found to be in total from C4-C5 6 and 7, we placed new hardware at C5 3 4 and C4 5 with K2M [place] anterior cervical plate with vikos intebody bone graft and screws Disposition: To recovery room in good stable condition. OPERATIVE INDICATIONS The patient has had long-standing issues in their neck and upper extremities. More than 10 years ago she had prior surgery at her neck which had done fairly well for her though she did have significant postoperative pain. Over the past several months she's been having significant increase in her pain and problems in her upper extremities. She says she has numbness and tingling particular at the left upper extremity with some evidence of weakness. She was found have significant cervical stenosis at C3 4 and C4 5 with retained hardware and solid fusion at C5 6 and 7. Her imaging correlate well with her neck and upper extremity symptoms. She is not making any progress despite aggressive conservative care. The patient has been through conservative treatment. We discussed various treatment options including surgery, and the patient wishes to proceed with surgery We discussed the risk, patient's alternatives and benefits of surgery including but not limited to, risk of bleeding risk of infection, risk of need for further surgery, risk of decreased, loss of motion, muscle function, malunion nonunion, hardware failure, nerve damage, paralysis, heart attack, and . OPERATIVE SUMMARY After discussing all the risks, patient alternatives and benefits at length, the patient elected to proceed with surgical intervention, signed informed consent, and presented for their procedure. The patient was seen and examined in the preoperative holding area and the surgical site was marked. The patient was given antibiotics and brought to the operating room. The patient was positioned on the operating room table in a supine position being careful to pad any bony prominences and pressure points. The patient was sedated and intubated by anesthesia in standard fashion. Once the airway and C- spine were stabilized the patient's arms were padded and tucked at her side, with her shoulders gently taped. The head was placed in a donut pad with the neck in good neutral alignment and position. We were careful to maintain the patient's cervical spine and good neutral alignment and position throughout. The patient was prepped and draped in a normal standard fashion. An appropriate timeout and keystone protocol performed. We were able to proceed with the surgery. The local wound area was infiltrated with local anesthetic. An incision was made transversely approximately 2-1/2 cm over the appropriate levels at C45 . Dissection was taken down subcutaneously to the level of the platysma which was split in line with its fibers. Dissection was taken with a carotid approach, with the trachea and esophagus medial and the carotid sheath laterally. We dissected down to the anterior surface of the vertebral bodies. Intraoperative x-ray was taken which showed a marker at the appropriate level of C4 5 . I had hoped to place stand-alone hardware at C4 5 but the plate from C5 6 and 7 was sitting over the anterior aspect of the disc at C45. This would preclude placement of a stand-alone device and I felt we had removed the hardware for appropriate stabilization at the new sites at C3 4 and C4 5. We dissected out further access the plate of C5 6 and 7 and were able to expose the screws and hardware were able to remove the screws in total and remove the plate in total was examined and found to be in total. The fusion at C5 6 and 7 was examined and found to be stable as well. I turned my attention back to the C3 4 and C4 5 level With the appropriate level positively confirmed, we were able to proceed with discectomy at the appropriate levels. All of the operative levels were exposed appropriately. The patient had all their twitches back, and there was no evidence of recurrent laryngeal issue. The wound was copiously irrigated and suctioned dry as had been done periodically throughout the case. At the appropriate level/levels, I established an annulotomy with an 11 blade scalpel. A discectomy was performed with a combination of pituitary rongeurs, curettes, a high-speed bur, and Kerrison rongeurs. The posterior longitudinal ligament was taken down as were any posterior osteophytes. This gave good central and bilateral foraminal decompression. There is no evidence of any dural tear or leak. The endplates were prepared with a high-speed bur. With the endplates in good parallel position, I was able to size for the appropriate size interbody graft. The wound was irrigated and suctioned dry the graft was prepared and malleted into position. It had good alignment and position with the anterior surface flush with the anterior surface of the vertebral bodies. This was done similarly the appropriate levels first at C4 5 and then at C3 4 . With the grafts intact, I was able to measure and contour and appropriate sized plate. The plate was positioned at the midline over the appropriate levels at C3 4 and 5 . Screw holes were established with a hand drill and drill guide. Screws were placed in good alignment and position with excellent bony purchase. They were seated under the locking device. The construct was checked and found to be stable. Intraoperative x-ray was taken which showed good alignment and position of the implants at the appropriate levels. There was no evidence of any dural tear or leak. Good hemostasis was maintained. The wound was copiously irrigated and suctioned dry as had been done periodically throughout the case. The platysma was closed with absorbable suture. The subcutaneous tissue was closed. The subcuticular tissue was closed with absorbable suture. The wound was cleaned and dried and dressed appropriately. A soft cervical collar was placed appropriately. The patient was woken up by anesthesia, extubated, transferred back gently to their hospital bed and brought to the recovery room in good stable condition. The patient will be admitted to the hospital for appropriate postoperative care, medical management and monitoring. We will continue to follow them closely about the postoperative course.
[2021-08-05] MEDS ORDERED: ALBUTEROL NEBULIZED 2.5 MG/3 ML INHALATION PRN (15:06)
[2021-08-05] MEDS ORDERED: ACETAMINOPHEN TAB 500 MG TAB PO PRN (15:06)
[2021-08-05] MEDS: HYDROcodone/APAP 7.5-325MG 1 EACH TAB PO PRN ×2 (15:39→21:44)
[2021-08-05] MEDS: SODIUM CHLORIDE 0.9% 1,000 ML IV SCH (15:41)
[2021-08-05] MEDS: HYDROmorphone 1 MG/ML 1 ML SYRINGE IVP PRN ×2 (16:43→22:54)
[2021-08-05] MEDS ORDERED: DOCUSATE 100 MG CAP PO PRN (18:48)
[2021-08-05] MEDS ORDERED: SENNOSIDES 8.6 MG TAB PO PRN (18:48)
[2021-08-05] MEDS: CHOLECALCIFEROL 25 MCG (1000 IU) TABLET PO SCH (19:26)
[2021-08-05] MEDS: DULoxetine HCL 60 MG CAPSULE.DR PO SCH (19:27)
[2021-08-05] MEDS: LOSARTAN-HCTZ 50-12.5 MG 1 EACH TAB PO SCH (19:27)
[2021-08-05] MEDS: ATORVASTATIN 10 MG TAB PO SCH (19:27)
[2021-08-06] MEDS: HYDROmorphone 1 MG/ML 1 ML SYRINGE IVP PRN ×3 (02:35→20:13)
[2021-08-06] MEDS: SODIUM CHLORIDE 0.9% 1,000 ML IV SCH ×2 (04:04→20:01)
[2021-08-06] MEDS: LEVOTHYROXINE 112 MCG TAB PO SCH (08:21)
[2021-08-06] MEDS: HYDROcodone/APAP 7.5-325MG 1 EACH TAB PO PRN ×2 (08:56→18:31)
[2021-08-06] MEDS ORDERED: PANTOPRAZOLE 40 MG TABLET PO SCH (09:00)
[2021-08-06] MEDS ORDERED: FORMOTEROL FUMARATE 20 MCG/2 ML NEBU INHALATION SCH (09:00)
--- NOTE | 2021-08-06 10:22 | P.DS ---
Providers Date of admission: 08/05/21 Attending physician: Chen Robert Primary care physician: Gabriella [facility] Course: The patient presented on the day of admission as per their operative note. She had severe cervical spinal stenosis C3 4 C4 5 with prior history of fusion C5 6 7. She is having severe upper extremity radiculopathy. She says she is feeling doing well postoperatively she feels her arms have made some good improvement thus far in her neck is manageable. She's been using her soft diet and ambulate. She has not been able to void on her own unit and had to be straight Overnight. Shows had to have a Baez placed this morning. She says she has history of bladder suspension and history of some urinary retention with bladder in the past. Physical Exam The incision site is clean dry and intact. There is no erythema no drainage. There is no purulence no evidence of infection. Her neck is soft and supple. There is some mild swelling and ecchymosis but it is supple. Abdomen soft and nontender. Chest has good excursion with deep inspiration and expiration. The patient has active and passive range of motion intact at the upper and lower extremities. There is no acute change in neurologic status. She has good strength in her bilateral upper extremities without any obvious deficit or change Hospital Course Postoperative day #1 status post anterior cervical decompression with discectomy and fusion C3 4 C4 5 for severe cervical stenosis with disc herniation upper extremity radiculopathy and removal of her plate from C5 6 and 7. Overall the patient is making progress and doing well with her pain and her symptoms. The patient has been making good progress postoperatively. They have completed the prophylactic antibiotics without any signs or symptoms of infection. The patient has been able to advance their diet, and is tolerating diet adequately. The pain was initially controlled with IV medications and is now controlled appropriately with oral medications. The patient has been able to increase their mobilization. The patient has not been able to void freely on her own thus far. She has history of some trouble with her bladder in the past and we will start her on Flomax and continue the Baez catheter through the afternoon. Later this afternoon we can remove the catheter and see if she is able to void freely. If she is able to void freely than I think it is okay for her to be discharged home today. If she is unable to void freely them which reinserted the catheter and monitoring her overnight for a trial again tomorrow. I discussed this with her and she understands. I discussed with the house staff as well. The patient has progressed appropriately. I think they are in good stable condition for discharge today if she is able to void freely with the Flomax and her Baez discontinued this afternoon. Otherwise she will stay again overnight with a new Baez intact. They will be sent home with appropriate prescriptions. I answered their questions to the best of my ability in a language that they can understand and they are agreeable with the plan. They will follow up as directed. Patient Condition at Discharge: Good Plan - Discharge Summary Discharge Rx Participant: No New Discharge Prescriptions: New Tamsulosin [Flomax] 0.4 mg PO DAILY #14 cap HYDROcodone/APAP 5-325MG [Cicero 5] 1 each PO Q6HR PRN #28 tab PRN Reason: Pain No Action Losartan/Hydrochlorothiazide [Hyzaar 100-25 Tablet] 1 tab PO HS Lovastatin [Mevacor] 20 mg PO HS Cholecalciferol [Vitamin D3 (25 Mcg = 1000 Iu)] 50 mcg PO HS DULoxetine HCL [Cymbalta] 60 mg PO HS Salmeterol Xinafoate [Serevent Diskus] 50 mcg IH QAM Albuterol Sulfate [Proair Respiclick] 1 puff PO Q6HR PRN PRN Reason: ASTHMA Estradiol [Yuvafem] 10 mcg VG TUFR Acetaminophen Tab [Tylenol Tab] 500 mg PO Q6H PRN PRN Reason: Pain Lansoprazole [Prevacid] 15 mg PO QAM Levothyroxine Sodium 112 mcg PO QAM Discharge Medication List Losartan/Hydrochlorothiazide [Hyzaar 100-25 Tablet] 1 tab PO HS 03/26/16 [History] Albuterol Sulfate [Proair Respiclick] 1 puff PO Q6HR PRN 05/14/20 [History] Cholecalciferol [Vitamin D3 (25 Mcg = 1000 Iu)] 50 mcg PO HS 05/14/20 [History] DULoxetine HCL [Cymbalta] 60 mg PO HS 05/14/20 [History] Lovastatin [Mevacor] 20 mg PO HS 05/14/20 [History] Salmeterol Xinafoate [Serevent Diskus] 50 mcg IH QAM 05/14/20 [History] Estradiol [Yuvafem] 10 mcg VG TUFR 09/17/20 [History] Lansoprazole [Prevacid] 15 mg PO QAM 09/17/20 [History] Levothyroxine Sodium 112 mcg PO QAM 01/20/21 [History] Acetaminophen Tab [Tylenol Tab] 500 mg PO Q6H PRN 08/04/21 [History] HYDROcodone/APAP 5-325MG [Cicero 5] 1 each PO Q6HR PRN #28 tab 08/06/21 [Rx] Tamsulosin [Flomax] 0.4 mg PO DAILY #14 cap 08/06/21 [Rx] Follow up Appointment(s)/Referral(s): Chen Robert DO [Doctor of Osteopathic Medicine] - 2 Weeks Discharge Disposition: HOME SELF-CARE
[2021-08-06] MEDS: TAMSULOSIN 0.4 MG CAP.ER.24H PO SCH (11:17)
[2021-08-06] MEDS: HYDROmorphone 0.5 MG/0.5 ML SYRINGE IVP PRN (11:56)
[2021-08-06] MEDS: LACTATED RINGERS 1,000 ML IV SCH (12:40)
[2021-08-06] MEDS: DULoxetine HCL 60 MG CAPSULE.DR PO SCH (20:12)
[2021-08-06] MEDS: CHOLECALCIFEROL 25 MCG (1000 IU) TABLET PO SCH (20:12)
[2021-08-06] MEDS: PANTOPRAZOLE 40 MG TABLET PO SCH (20:13)
[2021-08-06] MEDS: ATORVASTATIN 10 MG TAB PO SCH (20:13)
[2021-08-06] MEDS: LOSARTAN-HCTZ 50-12.5 MG 1 EACH TAB PO SCH (20:13)
[2021-08-07 04:12] VITALS: TEMP 98.7
[2021-08-07] MEDS: LEVOTHYROXINE 112 MCG TAB PO SCH (05:49)
[2021-08-07 08:09] VITALS: BP 117/68; PULSE 88; RESP 17
[2021-08-07] MEDS: PANTOPRAZOLE 40 MG TABLET PO SCH (08:21)
[2021-08-07] MEDS: TAMSULOSIN 0.4 MG CAP.ER.24H PO SCH (08:21)
--- NOTE | 2021-08-07 08:39 | P.PN ---
Progress Note - Text Progress Note Date: 08/07/21 Orthopedic Spine: History of present illness: Patient is a pleasant 70-year-old female who is seen at the bedside following anterior cervical decompression and fusion performed Tuesday. Patient states they are doing ok postsurgically. She was ready for discharge home yesterday but has had difficulty with voiding postoperatively. She did require Baez catheter reinsertion yesterday. She states she does have a history of bladder suspension with a history of some urinary retention with her bladder. She has not followed with urology recently. We are currently planning for discontinuation of Baez catheter today and if the patient is able to void ind ependently she'll be discharged home. Patient would like to be discharged home today. We did discuss if she is unable to void on her own we will plan for consultation with urology. Patient has been started on Flomax. She is not currently complaining of any upper extremity radiculopathy or weakness bilaterally. She has noticed some left superior scapular pain over the trap after getting out of bed this morning. She is eating without difficulty. Her cervical pain is adequately controlled. Currently does not complain of nausea, vomiting, fever, or chills. Her other medical diagnoses include hypertension, hyperlipidemia, hypothyroidism, mitral valve leak, unsteady gait, lung disease, and sleep apnea. Physical Exam Cervical Fusion: Status post surgical day number 2 Patient is awake, alert, and oriented 3 Vital signs stable Good chest excursion with deep inspiration and expiration Furnace Converter strength, thumb strength, interosseous strength, biceps strength, triceps strength, and shoulder strength positive sustained bilaterally Baez catheter intact Dressing is clean, dry, and intact; no erythema, purulence, or signs of infection No significant bruising or swelling around the surgical site at the cervical spine Patient is wearing soft cervical collar not currently Assessment: Status post C3-4 and C4-5 anterior cervical decompression and fusion with removal of hardware at C5-6 and C6-7 C3-4 and C4-5 herniated nucleus pulposus C3-4 and C4-5 cervical stenosis Upper extremity radiculopathy Cervicalgia History of previous cervical fusion with retained hardware at C5-6 and C6-7 History of bladder suspension History of urinary retention Hypertension Hyperlipidemia Hypothyroidism History of mitral valve leak Unsteady gait History of lung disease Sleep apnea Plan: 1. Ambulate as tolerated; work with Physical Therapy to increase mobilization 2. Continue pain control with oral medications as needed; prescription for hydrocodone 5 mg/325 m, take 1 tab every 6 hours as needed for pain, dispensed #28 has been sent to her pharmacy 3. Patient may shower with Optifoam dressing; patient may remove Optifoam in 3 days and shower without a dressing at that time 4. Patient has had difficulty with urinary retention postoperatively. A Baez catheter had to be reinserted yesterday. She does have a history of bladder suspension and a history of urinary retention. She has not followed with urology recently. We will plan to discontinue her Baez catheter this morning. If she is able to void independently patient will be cleared for discharge home today. If she continues to have difficulty with urinary retention, we will plan for consultation with urology. Patient will continue with Flomax as prescribed. Prescription for Flomax is also been sent to her pharmacy to take following discharge from hospital. 5. We will continue to follow the patient closely 6. Patient can follow-up with Wilbur Link PA-C or Dr. Jacob Robert at [facility] in 2-3 weeks following discharge
[2021-08-07] MEDS ORDERED: ESTRADIOL 10 MCG VG SCH (14:01)
== END 2021-08-07 13:37 | disposition home or self-care (01) ==
LOC: OR 08:44 → 4SSUR 13:35 → OR 08-07 13:37
PROVIDERS: ATTEND Orthopaedic Surgery Orthopaedic Surgery of the Spine
DX: M50.11 Cervical disc disorder with radiculopathy, high cervical region (principal); M48.02 Spinal stenosis, cervical region; I10 Essential (primary) hypertension; E78.5 Hyperlipidemia, unspecified; E03.9 Hypothyroidism, unspecified; H91.90 Unspecified hearing loss, unspecified ear; K30 Functional dyspepsia; R45.0 Nervousness; J98.4 Other disorders of lung; R26.81 Unsteadiness on feet; G47.30 Sleep apnea, unspecified; Z98.1 Arthrodesis status; D75.1 Secondary polycythemia; F32.A Depression, unspecified; I05.9 Rheumatic mitral valve disease, unspecified; Z83.3 Family history of diabetes mellitus; Z82.49 Family history of ischemic heart disease and other diseases of the circulatory system; Z79.1 Long term (current) use of non-steroidal anti-inflammatories (NSAID); Z79.890 Hormone replacement therapy; Z79.899 Other long term (current) drug therapy; Z87.891 Personal history of nicotine dependence; Z88.2 Allergy status to sulfonamides; Z88.8 Allergy status to other drugs, medicaments and biological substances; Z88.6 Allergy status to analgesic agent; Z91.040 Latex allergy status; J45.909 Unspecified asthma, uncomplicated
CPT/HCPCS: 72020; 22551; 22552; 22845; 20931; 20680; C1713 ×2; C1762 ×2; J2250; J1200; J1100; J2710; J0690 ×3; J2405; J2001; J3010; J1170 ×4; J2370; J0330; J2704

== ENCOUNTER → 2021-10-02 | Outpatient (CLI) | payer MEDICARE, OTHER | END | disposition home or self-care (01) | LOC: LABWHC1 14:14 | PROVIDERS: ATTEND Internal Medicine Endocrinology, Diabetes & Metabolism | DX: E03.8 Other specified hypothyroidism (principal) | CPT/HCPCS: 36415; 84443 ==

== ENCOUNTER → 2021-10-02 | Outpatient (CLI) | payer MEDICARE, OTHER ==
--- NOTE | 2021-10-05 08:56 | MM ---
Reason for Exam: Screening (asymptomatic). Last mammogram was performed 1 year(s) and 1 month(s) ago. Patient History: Menarche at age 15. First Full-Term at age 25. Hysterectomy at age 52. Postmenopausal. Currently using Estrogen, starting at age 66. Risk Values: Erin 5 year model risk: 1.5%. NCI Lifetime model risk: 4.8%. Prior Study Comparison: 03/16/2019 Bilateral Screening Mammogram, [facility]. 09/09/2020 Bilateral Screening Mammogram, [facility]. 09/18/2020 Right Diagnostic Mammogram, [facility]. Tissue Density: The breast tissue is heterogeneously dense. This may lower the sensitivity of mammography. Findings: Analyzed By CAD. There is no suspicious group of microcalcifications or new suspicious mass in either breast. Overall Assessment: Negative, BI-RAD 1 Management: Screening Mammogram of both breasts in 1 year. A clinical breast exam by your physician is recommended on an annual basis and results should be correlated with mammographic findings. Electronically signed and approved by: Gennaro Castrejon M.D. Radiologis
== END | disposition home or self-care (01) ==
LOC: RADMAMWWP 13:53
PROVIDERS: ATTEND Family Medicine
DX: Z12.31 Encounter for screening mammogram for malignant neoplasm of breast (principal)
CPT/HCPCS: 77063; 77067

== ENCOUNTER → 2022-03-25 | Outpatient (CLI) | payer MEDICARE, OTHER ==
--- NOTE | 2022-03-25 10:59 | P.PN ---
Subjective DATE: 03/25/2022 FOLLOW UP VISIT. Patient with obstructive sleep apnea hypopnea syndrome return to sleep center for follow-up visit. Information from previous visit have been reviewed. Patient is using PAP equipment every night for the whole night, getting PAP supplies in time. The patient does not have significant problems with the mask, PAP unit and humidification. [place] sleepiness scale is 3, which is normal. I checked information from PAP unit. PAP unit pressure 5-13, average 11.8 cm H2O. Usage is 100 % for more then 4 hours, average 6.8 hours per night. Leak is 0.6 l/m, which is in acceptable range. Apnea Hypopnea Index is 4.8, which decreased from 5.8 during previous visit, one pressure was changed to present level. MEDICATIONS:1. Synthroid 112 g once a day 2. Lovastatin 40 mg once a day 3 Losartan hydrochlorothiazide 100 mg-25 mg 4. Duloxetine 60 mg once a day 5. Albuterol inhaler During physical exam: GENERAL: A pleasant patient without any distress. VITAL SIGNS: BP [126/79 HR [64 RR[ 16 weight[ 219.2 temperature [95.7 oxygen saturation at room air[ 99 . HEENT: PERRLA, EOMI.low position of soft palate, Mallapati[3. NECK: Supple. No JVD. LUNGS: Clear to percussion and to auscultation. Good air exchange. No wheezing or rhonchi. HEART: S1, S2 regular. ABDOMEN: Soft and nontender.[ Slightly obese EXTREMITIES: No clubbing or cyanosis. WAX COATING MACHINE TENDER: Awake, alert, and oriented x3. No focal deficit. Impressions: 1. Obstructive sleep apnea-hypopnea syndrome. Patient demonstrated great compliance with treatment, benefiting from treatment. Apnea-hypopnea index reduced to normal range after the pressure was changed during the previous visit, on the border now 4.8. 2. [Hypertension 3. [Hyperlipidemia 4. [Asthma 5. [Hypothyroidism Plan: 1. Continue using PAP equipment every night for the whole night. 2. To change air filter at least 1-2 times per month. 3. PAP unit should stay lower then position of the head. 4. Advised patient to remove all remaining water from humidifier canister daily and make it dry after each usage. Refill canister with fresh distilled water before each usage. 5. Sleep hygiene with regular time in bed for at least 8 hours. 6. Precautions related to driving. No driving if feel any sleepiness. 7. I will maintain prescription for PAP supplies including mask, tube, filters. 8. Follow up visit in 6 months or earlier if patient has any problems. 9. Watching and losing weight. Thank you very much for allowing me to participate in the management of your patient. Elijah Dixon MD, PhD, FAASM. Diplomat of [employer], Sleep Medicine Board by [employer] Lithographic Proofer Apprentice of [facility] [place]
== END ==
LOC: SLEEP 10:18
PROVIDERS: ATTEND Internal Medicine
DX: G47.33 Obstructive sleep apnea (adult) (pediatric) (principal); Z99.89 Dependence on other enabling machines and devices; I10 Essential (primary) hypertension; E78.5 Hyperlipidemia, unspecified; J45.909 Unspecified asthma, uncomplicated; E03.9 Hypothyroidism, unspecified; Z87.891 Personal history of nicotine dependence; Z88.6 Allergy status to analgesic agent; Z91.040 Latex allergy status; Z88.2 Allergy status to sulfonamides; Z88.8 Allergy status to other drugs, medicaments and biological substances; Z88.1 Allergy status to other antibiotic agents
CPT/HCPCS: 99212

== ENCOUNTER → 2022-09-23 | Outpatient (CLI) | payer MEDICARE, OTHER ==
--- NOTE | 2022-09-23 11:32 | P.PN ---
Subjective DATE: 09/23/2022 FOLLOW UP VISIT. Patient with obstructive sleep apnea hypopnea syndrome return to sleep center for follow-up visit. Information from previous visit have been reviewed. Patient is using PAP equipment every night for the whole night, getting PAP supplies in time. The patient does not have significant problems with the mask, PAP unit and humidification. [place] sleepiness scale is 8, which is normal. I checked information from PAP unit. PAP unit pressure 5-14, average 11 cm H2O. Usage is 100 % for more then 4 hours, average 6.1 hours per night. Leak is on l/m, which is in acceptable range. Apnea Hypopnea Index is 3.7, which is normal. MEDICATIONS:1. Synthroid 125 g once a day 2. Losartan/hydrochlorothiazide 100-25 mg once a day 3. Singulair 10 mg once a day 4. Albuterol 5. Duloxetine 60 mg once a day 6. Lovastatin 20 mg once a day During physical exam: GENERAL: A pleasant patient without any distress. VITAL SIGNS: BP 114/57, HR 73, RR 15, weight 212.8, temperature 97.4, oxygen saturation at room air 96 % . HEENT: PERRLA, EOMI.low position of soft palate, Mallapati 3 . NECK: Supple. No JVD. LUNGS: Clear to percussion and to auscultation. Good air exchange. No wheezing or rhonchi. HEART: S1, S2 regular. ABDOMEN: Soft and nontender.[] EXTREMITIES: No clubbing or cyanosis. AGRICULTURAL EXTENSION OFFICER: Awake, alert, and oriented x3. No focal deficit. Impressions: 1. Obstructive sleep apnea-hypopnea syndrome. Patient demonstrated great compliance with treatment, benefiting from treatment. Normal apnea-hypopnea index after pressures have been adjusted during previous visits. 2. Mild obesity, BMI 34.5, patient lost 7 pounds comparing with previous visit. 3. Hypertension. 4. Asthma. 5. Hyperlipidemia. 6. Hypothyroidism. Plan: 1. Continue using PAP equipment every night for the whole night. 2. To change air filter at least 1-2 times per month. 3. PAP unit should stay lower then position of the head. 4. Advised patient to remove all remaining water from humidifier canister daily and make it dry after each usage. Refill canister with fresh distilled water before each usage. 5. Sleep hygiene with regular time in bed for at least 8 hours. 6. Precautions related to driving. No driving if feel any sleepiness. 7. I will maintain prescription for PAP supplies including mask, tube, filters. 8. Watching and losing weight. 9. Follow up visit in 6 months or earlier if patient has any problems. Thank you very much for allowing me to participate in the management of your patient. Elijah Dixon MD, PhD, FAASM. Diplomat of [employer], Sleep Medicine Board by [employer] Position Classifier of [facility] [place] (
== END ==
LOC: 3 N SLEEP 10:45
PROVIDERS: ATTEND Internal Medicine
DX: G47.33 Obstructive sleep apnea (adult) (pediatric) (principal); E03.9 Hypothyroidism, unspecified; E66.9 Obesity, unspecified; E78.5 Hyperlipidemia, unspecified; I10 Essential (primary) hypertension; J45.909 Unspecified asthma, uncomplicated; Z68.34 Body mass index [BMI] 34.0-34.9, adult; Z79.899 Other long term (current) drug therapy
CPT/HCPCS: 99212

== ENCOUNTER → 2023-04-06 | Outpatient (CLI) | payer MEDICARE, OTHER ==
--- NOTE | 2023-04-06 11:24 | P.PN ---
Subjective DATE: 04/06/2023 FOLLOW UP VISIT. Patient with obstructive sleep apnea hypopnea syndrome return to sleep center for follow-up visit. Information from previous visit have been reviewed. Patient is using PAP equipment every night for the whole night, getting PAP supplies in time. The patient does not have significant problems with the mask, PAP unit and humidification. [place] sleepiness scale is 5, which is normal. I checked information from PAP unit and discussed it with patient in details. PAP unit pressure 5-14, average 11.9 cm H2O. Usage is 100 % for more then 4 hours, average 6.6 hours per night. Leak is 1 l/m, which is in acceptable range. Apnea Hypopnea Index is 3.7, which is normal. MEDICATIONS:1. Synthroid 125 g once a day 2. Losartan/hydrochlorothiazide 59728 milligrams once a day 3. Duloxetine 60 mg once a day 4. Albuterol 5. Lovastatin 20 mg once a day During physical exam: GENERAL: A pleasant patient without any distress. VITAL SIGNS: BP 149/83, HR 71, RR 18 , weight 223.8, temperature 97.8, oxygen saturation at room air 94 % . HEENT: PERRLA, EOMI.low position of soft palate, Mallapati 3 . NECK: Supple. No JVD. LUNGS: Clear to percussion and to auscultation. Good air exchange. No wheezing or rhonchi. HEART: S1, S2 regular. ABDOMEN: Soft and nontender.[] EXTREMITIES: No clubbing or cyanosis. NUTRITION COORDINATOR: Awake, alert, and oriented x3. No focal deficit. Impressions: 1. Obstructive sleep apnea-hypopnea syndrome. Patient demonstrated great compliance with treatment, benefiting from treatment. 2. Mild obesity, patient increased to wait on 11 pounds comparing with previous visit. 3. Hypertension. 4. Hyperlipidemia. 5. Hypothyroidism. 6. Asthma. Plan: 1. Continue using PAP equipment every night for the whole night. 2. To change air filter at least 1-2 times per month. 3. PAP unit should stay lower then position of the head. 4. Advised patient to remove all remaining water from humidifier canister daily and make it dry after each usage. Refill canister with fresh distilled water before each usage. 5. Sleep hygiene with regular time in bed for at least 8 hours. 6. Precautions related to driving. No driving if feel any sleepiness. 7. I will maintain prescription for PAP supplies including mask, tube, filters. 8. Follow up visit in 6 months or earlier if patient has any problems. 9. Watching and losing weight. Thank you very much for allowing me to participate in the management of your patient. Elijah Dixon MD, PhD, FAASM. Diplomat of [employer] Medicine, Sleep Medicine Board by [employer] Medicine Home Care Assistant of [facility] [place]
== END ==
LOC: 3 N SLEEP 10:55
PROVIDERS: ATTEND Internal Medicine
DX: G47.33 Obstructive sleep apnea (adult) (pediatric) (principal); E03.9 Hypothyroidism, unspecified; E66.9 Obesity, unspecified; E78.5 Hyperlipidemia, unspecified; I10 Essential (primary) hypertension; J45.909 Unspecified asthma, uncomplicated; Z79.890 Hormone replacement therapy; Z79.899 Other long term (current) drug therapy; Z99.89 Dependence on other enabling machines and devices; Z88.6 Allergy status to analgesic agent; Z91.040 Latex allergy status; Z88.2 Allergy status to sulfonamides; Z88.1 Allergy status to other antibiotic agents; Z88.8 Allergy status to other drugs, medicaments and biological substances; Z87.891 Personal history of nicotine dependence
CPT/HCPCS: 99212

== ENCOUNTER → 2024-02-22 | Outpatient (CLI) | payer MEDICARE, OTHER ==
[2024-02-22 16:43] VITALS: BP 147/78; PULSE 74; RESP 16; TEMP 97.9
--- NOTE | 2024-02-22 17:05 | P.PROGSL ---
Subjective DATE: 02/22/2024 FOLLOW UP VISIT. Patient with obstructive sleep apnea hypopnea syndrome return to sleep center for follow-up visit. Information from previous visit have been reviewed. Patient is using PAP equipment every night for the whole night, getting PAP supplies in time. The patient does not have significant problems with the mask, PAP unit and humidification. [place] sleepiness scale is 3, which is normal. I checked information from PAP unit. PAP unit pressure 5-14, average 11.6 cm H2O. Usage is 100% for more then 4 hours, average 7.3 hours per night. Leak is perfect 1.0 l/m. Apnea Hypopnea Index is 3.7, which is normal. MEDICATIONS: Please see below During physical exam: GENERAL: A pleasant patient without any distress. VITAL SIGNS: Please see below weight 230.4 pounds. HEENT: PERRLA, EOMI.low position of soft palate, Mallapati 3 . NECK: Supple. No JVD. LUNGS: Clear to percussion and to auscultation. Good air exchange. No wheezing or rhonchi. HEART: S1, S2 regular. ABDOMEN: Soft and nontender. Slightly obese EXTREMITIES: No clubbing or cyanosis. CUSTOMER SUPPORT ENGINEER: Awake, alert, and oriented x3. No focal deficit. Impressions: 1. Obstructive sleep apnea-hypopnea syndrome. Patient demonstrated great compliance with treatment, benefiting from treatment. 2. Obesity, BMI 37.1, patient increased weight on 7 pounds comparing with previous visit. 3. Hypertension. 4. Hyperlipidemia. 5. Hypothyroidism. 6. History of asthma. Plan: 1. Continue using PAP equipment every night for the whole night. 2. To change air filter at least 1-2 times per month. 3. PAP unit should stay lower then position of the head. 4. Advised patient to remove all remaining water from humidifier canister daily and make it dry after each usage. Refill canister with fresh distilled water before each usage. 5. Sleep hygiene with regular time in bed for at least 8 hours. 6. Precautions related to driving. No driving if feel any sleepiness. 7. I will maintain prescription for PAP supplies including mask, tube, filters. 8. Follow up visit in 8 months or earlier if patient has any problems. 9. Watching and losing weight. Thank you very much for allowing me to participate in the management of your patient. Elijah Dixon MD, PhD, FAASM. Diplomat of [place] [employer] Sleep Medicine, Sleep Medicine Board by [employer] Medicine Malted Milk Masher of [facility] [place] Objective - Vital Signs Vital Signs: Vital Signs Temp 97.9 F 02/22/24 16:41 Pulse 74 02/22/24 16:41 Resp 16 02/22/24 16:41 BP 147/78 02/22/24 16:41 Pulse Ox 96 02/22/24 16:41 FiO2 Intake & Output 02/21/24 02/22/24 02/22/24 18:59 06:59 18:59 Weight 104.44 kg Home Medications: Home Medications Medication Instructions Recorded Confirmed Type Losartan/Hydrochlorothiazide 1 tab PO HS 03/26/16 02/22/24 History [Hyzaar 100-25 Tablet] Albuterol Sulfate [Proair 1 puff PO Q6HR PRN 05/14/20 08/05/21 History Respiclick] Cholecalciferol [Vitamin D3 (25 50 mcg PO HS 05/14/20 08/04/21 History Mcg = 1000 Iu)] DULoxetine HCL [Cymbalta] 60 mg PO HS 05/14/20 02/22/24 History Lovastatin [Mevacor] 20 mg PO HS 05/14/20 02/22/24 History Salmeterol Xinafoate [Serevent 50 mcg I[facility] 05/14/20 08/04/21 History Diskus] Lansoprazole [Prevacid] 15 mg PO [facility] 09/17/20 02/22/24 History estradioL [Yuvafem] 10 mcg VG TUFR 09/17/20 08/05/21 History Levothyroxine Sodium 112 mcg PO DIRECTED 01/20/21 08/04/21 History Acetaminophen Tab [Tylenol Tab] 500 mg PO Q6H PRN 08/04/21 08/05/21 History HYDROcodone/APAP 5-325MG [[place] 5] 1 each PO Q6HR PRN #28 tab 08/06/21 Rx Tamsulosin [Flomax] 0.4 mg PO DAILY #14 cap 08/06/21 Rx Cetirizine HCl [Zyrtec] 10 mg PO DAILY 02/22/24 02/22/24 History Levothyroxine Sodium [Synthroid] 125 mcg PO DIRECTED 02/22/24 02/22/24 History Levothyroxine Sodium [Synthroid] See Rx Instructions .ROUTE .COMPLEX 02/22/24 02/22/24 History Montelukast [Singulair] 10 mg PO DAILY 02/22/24 02/22/24 History
== END ==
LOC: 3 N SLEEP 15:42
PROVIDERS: ATTEND Internal Medicine
CPT/HCPCS: 99212

== ENCOUNTER → 2024-11-01 | Outpatient (CLI) | payer MEDICARE, OTHER ==
[2024-11-01 11:05] VITALS: BP 129/82; PULSE 62; RESP 16; TEMP 98.1
--- NOTE | 2024-11-01 11:15 | P.PROGSL ---
Subjective DATE: 11/01/2024 FOLLOW UP VISIT. Patient with obstructive sleep apnea hypopnea syndrome return to sleep center for follow-up visit. Information from previous visit have been reviewed. Patient is using PAP equipment every night for the whole night, getting PAP supplies in time. The patient does not have significant problems with the mask, PAP unit and humidification. [place] sleepiness scale is 4. I checked information from PAP unit. PAP unit pressure 5-14, average 10.9 cm H2O. Usage is 100% for more then 4 hours, average 7.3 hours per night. Leak is 1 l/m, which is in perfect range. Apnea Hypopnea Index is 3.1, which is normal. MEDICATIONS have been reviewed, please see below. During physical exam: GENERAL: A pleasant patient without any distress. VITAL SIGNS: Please see below, weight is 219 lbs. HEENT: PERRLA, EOMI.low position of soft palate, Mallapati 3 . NECK: Supple. No JVD. LUNGS: Clear to percussion and to auscultation. Good air exchange. No wheezing or rhonchi. HEART: S1, S2 regular. ABDOMEN: Soft and nontender.[] EXTREMITIES: No clubbing or cyanosis. HANDICAPPER HARNESS RACING: Awake, alert, and oriented x3. No focal deficit. Impressions: 1. Obstructive sleep apnea-hypopnea syndrome. Patient demonstrated great compliance with treatment, benefiting from treatment. 2. Obesity, BMI 35.3, patient lost 11 pounds comparing with previous visit. 3. Hypertension. 4. Hyperlipidemia. 5. History of asthma. 6. Hypothyroidism. Plan: 1. Continue using PAP equipment every night for the whole night. 2. Sleep hygiene with regular time in bed for at least 7.5-8 hours 3. PAP unit should stay lower then position of the head. 4. Advised patient to remove all remaining water from humidifier canister daily and make it dry after each usage. Refill canister with fresh distilled water before each usage. 5. Watching and continue losing weight. 6. Precautions related to driving. No driving if feel any sleepiness. 7. I will maintain prescription for PAP supplies including mask, tube, filters. 8. Follow up visit in 8 months or earlier if patient has any problems. Thank you very much for allowing me to participate in the management of your patient. Elijah Dixon MD, PhD, FAASM. Diplomat of [employer] [employer], Sleep Medicine Board by [employer] Electrical Equipment Assembler of [facility] [place] Objective - Vital Signs Vital Signs: Vital Signs Temp 98.1 F 11/01/24 11:04 Pulse 62 11/01/24 11:04 Resp 16 11/01/24 11:04 BP 129/82 11/01/24 11:04 Pulse Ox 99 11/01/24 11:04 FiO2 Intake & Output 10/31/24 11/01/24 11/01/24 18:59 06:59 18:59 Weight 99.337 kg Home Medications: Home Medications Medication Instructions Recorded Confirmed Type Losartan/Hydrochlorothiazide 1 tab PO HS 03/26/16 02/22/24 History [Hyzaar 100-25 Tablet] Albuterol Sulfate [Proair 1 puff PO Q6HR PRN 05/14/20 08/05/21 History Respiclick] Cholecalciferol [Vitamin D3 (25 50 mcg PO HS 05/14/20 08/04/21 History Mcg = 1000 Iu)] DULoxetine HCL [Cymbalta] 60 mg PO HS 05/14/20 02/22/24 History Lovastatin [Mevacor] 20 mg PO HS 05/14/20 02/22/24 History Salmeterol Xinafoate [Serevent 50 mcg IH QAM 05/14/20 08/04/21 History Diskus] Lansoprazole [Prevacid] 15 mg PO QAM 09/17/20 02/22/24 History estradioL [Yuvafem] 10 mcg VG TUFR 09/17/20 08/05/21 History Levothyroxine Sodium 112 mcg PO DIRECTED 01/20/21 08/04/21 History Acetaminophen Tab [Tylenol Tab] 500 mg PO Q6H PRN 08/04/21 08/05/21 History HYDROcodone/APAP 5-325MG [[place] 5] 1 each PO Q6HR PRN #28 tab 08/06/21 Rx Tamsulosin [Flomax] 0.4 mg PO DAILY #14 cap 08/06/21 Rx Cetirizine HCl [Zyrtec] 10 mg PO DAILY 02/22/24 02/22/24 History Levothyroxine Sodium [Synthroid] 125 mcg PO DIRECTED 02/22/24 02/22/24 History Levothyroxine Sodium [Synthroid] See Rx Instructions .ROUTE .COMPLEX 02/22/24 02/22/24 History Montelukast [Singulair] 10 mg PO DAILY 02/22/24 02/22/24 History
== END ==
LOC: 3 N SLEEP 10:54
PROVIDERS: ATTEND Internal Medicine
DX: G47.33 Obstructive sleep apnea (adult) (pediatric) (principal); I10 Essential (primary) hypertension; E66.9 Obesity, unspecified; E78.5 Hyperlipidemia, unspecified; E03.9 Hypothyroidism, unspecified; J45.909 Unspecified asthma, uncomplicated; Z68.35 Body mass index [BMI] 35.0-35.9, adult; Z99.89 Dependence on other enabling machines and devices; Z88.6 Allergy status to analgesic agent; Z88.2 Allergy status to sulfonamides; Z88.5 Allergy status to narcotic agent; Z88.8 Allergy status to other drugs, medicaments and biological substances; Z87.891 Personal history of nicotine dependence
CPT/HCPCS: 99212